=== PATIENT | female | born 1985 | race Two or more races ===

== ENCOUNTER 2017-01-20 16:31 | Emergency (ER) | payer MEDICARE ==
[2017-01-20 18:53] LABS: Hematocrit 39 % (35-47); Mean Corpuscular HGB Conc 33 g/dl (31-36); Mean Corpuscular Hemoglobin 28 pg (27-31); Mean Corpuscular Volume 83 fL (80-97); Mean Platelet Volume 8 um3 (7.4-10.4); Red Blood Count 4.72 10^6/ul (4.0-5.4); Red Cell Distribution Width 14 % (10.5-15); White Blood Count 10.5 10^3/ul (3.5-10.8)
[2017-01-20 19:05] LABS: Albumin 4.3 g/dL (3.2-5.2); BUN/Creatinine Ratio 9.1 (8-20); Calcium 9.2 mg/dL (8.6-10.3); EGFR African American 133.5 (>60); EGFR Non-African American 103.8 (>60); Globulin 3.6 g/dL (2-4); Magnesium 2.3 mg/dL (1.9-2.7); Potassium 3.6 mmol/L (3.5-5.0); Total Bilirubin 0.3 mg/dL (0.2-1.0); Total Protein 7.9 g/dL (6.4-8.9)
--- NOTE | 2017-01-20 19:08 | RAD ---
Indication: Palpitations. Single frontal view of the chest performed at 1845 hours was reviewed. Comparison is made with previous exam dated July 10, 2013. No mediastinal shift is noted. Heart is of normal size and configuration. Lung wahl appear clear. IMPRESSION: NO ACTIVE CARDIOPULMONARY DISEASE IS NOTED.
[2017-01-20 19:19] LABS: TSH (Thyroid Stimulating Horm) 2.41 mcIU/mL (0.34-5.60)
[2017-01-20] MEDS ORDERED: NS 0.9% 1000 ML* 1,000 ML IV ONE (20:04)
--- NOTE | 2017-01-20 23:03 | ED ---
Margarito Downs Salem, scribed for Olvin Ramsey MD on 01/20/17 at 1908 . HPI Chest Pain - HPI Summary HPI Summary: Patient is a 31 y/o female who presents with increased stabbing, left-sided CP since 2 days ago, worse today. She reports chest tightness, dizziness, and SOB. She states that she has been experiencing palpitations and lightheadedness with mild exertion for the last 2 days. Pt also reports a sinus infection a few weeks ago. PMHx of SVT. - History of Current Complaint Chief Complaint: EDDysrhythmPalp Time Seen by Provider: 01/20/17 18:00 Hx Obtained From: Patient Onset/Duration: Started Days Ago, Still Present Timing: Constant Initial Severity: Moderate Current Severity: Moderate Pain Intensity: 10 Pain Scale Used: 0-10 Numeric Chest Pain Location: Mid Sternal, Left Anterior Character: Sharp/Stabbing Aggravating Factor(s): Exertion Alleviating Factor(s): Rest Associated Signs and Symptoms: Positive: Chest Pain - and tightness., Dizziness , Shortness of Breath, Lightheadedness, Other: - Palpitations. - Additional Pertinent History Primary Care Physician: [id number] - Allergy/Home Medications Allergies/Adverse Reactions: Allergies Allergy/AdvReac Type Severity Reaction Status Date / Time Clarithromycin [From Biaxin] Allergy Severe Anaphylatic Verified 01/20/17 16:51 Shock Clindamycin Allergy Severe Anaphylatic Verified 01/20/17 16:51 Shock Pregabalin [From Lyrica] Allergy Severe tremors, Verified 01/20/17 16:51 low blood sugar Sulfamethoxazole Allergy Severe Airway Verified 01/20/17 16:51 w/Trimethoprim Obstruction [From Bactrim] Ciprofloxacin [From Cipro] Allergy Intermediate Swelling Verified 01/20/17 16:51 Of Face,Lips,& Throat Dexamethasone Allergy Intermediate Hives Verified 01/20/17 16:51 Gabapentin [From Neurontin] Allergy Intermediate Hives Verified 01/20/17 16:51 Mupirocin [From Bactroban] Allergy Intermediate Hives Verified 01/20/17 16:51 Rofecoxib [From Vioxx] Allergy Intermediate Hives Verified 01/20/17 16:51 Minocycline Allergy Mild Hives Verified 01/20/17 16:51 Oxaprozin [From Daypro] Allergy Mild Rash Verified 01/20/17 16:51 Methylprednisolone AdvReac Intermediate migraine Verified 01/20/17 16:51 Oxycodone AdvReac Intermediate Altered Verified 01/20/17 16:51 Mental Status Vancomycin AdvReac Intermediate See Comment Verified 01/20/17 16:51 Hydrocodone [From Vicodin] AdvReac Mild Nausea Verified 01/20/17 16:51 Levofloxacin [From Levaquin] AdvReac Mild Leg Cramps Verified 01/20/17 16:51 Tapentadol [From Nucynta] AdvReac Mild Shakes Verified 01/20/17 16:51 Tizanidine [From Zanaflex] AdvReac Mild See Comment Verified 01/20/17 16:51 Tramadol [From Ultram] AdvReac Mild Nausea Verified 01/20/17 16:51 WHEAT Allergy Severe Anaphylatic Uncoded 01/20/17 16:51 Shock ADHESIVE Allergy NICE Uncoded 01/20/17 16:51 SKIN, ITCHY IRRITATED ENVIRONMENTAL Allergy Congestion Uncoded 01/20/17 16:51 LATEX Allergy Rash And Uncoded 01/20/17 16:51 Itching Home Medications: Home Medications Albuterol 2.5MG/3ML (0.083%)* [Ventolin 2.5 MG/3 ML NEB.[id number]*] 2.5 mg INH QID PRN 01/20/17 [History Confirmed 01/20/17] Benzoyl Peroxide [Benzoyl Peroxide Wash] 5 % TOPICAL QPM 01/20/17 [History Confirmed 01/20/17] DULoxetine DR CAP* [Cymbalta CAP*] 30 mg PO BID 01/20/17 [History Confirmed 09/26] tretinoin 0.03% (NF) [Retin-A 0.03% (NF)] 1 applic TOPICAL DAILY PRN 01/20/17 [ History Confirmed 01/20/17] PMH/Surg Hx/FS Hx/Imm Hx Endocrine/Hematology History: Reports: Hx Diabetes - TYPE 2 Cardiovascular History: Reports: Hx Angina Denies: Hx Hypertension, Hx Pacemaker/ICD Comment Only: Other Cardiovascular Problems/Disorders - SVT Respiratory History: Reports: Hx Asthma Denies: Hx Sleep Apnea GI History: Denies: Other GI Disorders History: Reports: Other Problems/Disorders - HX- KIDNEY STONES-2006 Denies: Hx Renal Disease Musculoskeletal History: Reports: Hx Arthritis, Hx Back Problems, Hx Tendonitis , Other Musculoskeletal History - LAMINECTOMY x 2, SPINAL FUSION DISCECTOMY Sensory History: Reports: Hx Contacts or Glasses - CONTACTS, WILL WEAR GLASSES DAY OF SURGERY Denies: Hx Hearing Aid Opthamlomology History: Reports: Hx Contacts or Glasses - CONTACTS, WILL WEAR GLASSES DAY OF SURGERY Neurological History: Reports: Hx Headaches, Hx Migraine - ALLERGY TRIGGERED, Hx Nerve Disease, Other Neuro Impairments/Disorders - RADICULOPATHY, NEUROPATHY Psychiatric History: Denies: Hx Depression, Hx Panic Disorder - Surgical History Surgery Procedure, Year, and Place: [id number] 6 TOTAL BACK SURGERIES INCLUDING LUMBAR SPINAL FUSIONS AND LAMINECTOMIES, [facility]. 07/2016 DILATION [place] [facility] [place]. [place]/2016 RIGHT WRIST TUMOR REMOVED/RIGHT MIDDLE FINGER REMOVAL [place] TISSUE, [facility] [place] SPINAL STIMULATOR IMPLANT, [place]. [id number] 3 SETS OF EAR TUBES A CHILD, [facility]. 1992 T & A, [facility] Hx Anesthesia Reactions: No Infectious Disease History: Yes Infectious Disease History: Reports: Hx of Known/Suspected MRSA, History Other Infectious Disease - MRSA Denies: Traveled Outside the US in Last 30 Days - Social History Alcohol Use: None Substance Use Type: Reports: None Smoking Status (MU): Never Smoked Tobacco Have You Smoked in the Last Year: No Review of Systems Negative: Fever Positive: Chest Pain - and tightness. , Other - Palpitations. Positive: Shortness Of Breath Neurological: Other - Dizziness. Lightheadedness. All Other Systems Reviewed And Are Negative: Yes Physical Exam Triage Information Reviewed: Yes Vital Signs On Initial Exam: Initial Vitals Temp Pulse Resp BP Pulse Ox 97.3 F 84 20 113/63 100 01/20/17 16:51 01/20/17 16:51 01/20/17 16:51 01/20/17 16:51 01/20/17 16:51 Vital Signs Reviewed: Yes Appearance: Positive: Well-Appearing, No Pain Distress, Obese Skin: Positive: Warm, Skin Color Reflects Adequate Perfusion, Dry Head/Face: Positive: Normal Head/Face Inspection Eyes: Positive: Normal Neck: Positive: Supple, Nontender Respiratory/Lung Sounds: Positive: Clear to Auscultation, Breath Sounds Present Cardiovascular: Positive: Tachycardia - when sitting up. Abdomen Description: Positive: Nontender, Soft Bowel Sounds: Positive: Present Musculoskeletal: Positive: Normal Neurological: Positive: Normal Psychiatric: Positive: Normal, Affect/Mood Appropriate - Fili Coma Scale Coma Scale Total: 13 Diagnostics - Vital Signs Vital Signs Temp Pulse Resp BP Pulse Ox 01/20/17 17:17 20 01/20/17 17:11 71 01/20/17 16:51 97.3 F 84 20 113/63 100 - Laboratory Lab Results: Lab Results 01/20/17 01/20/17 Range/Units 17:25 17:25 WBC 10.5 (3.5-10.8) 10^3/ul RBC 4.72 (4.0-5.4) 10^6/ul Hgb 13.0 (12.0-16.0) g/dl Hct 39 (35-47) % MCV 83 (80-97) fL MCH 28 (27-31) pg MCHC 33 (31-36) g/dl RDW 14 (10.5-15) % Plt Count 296 (150-450) 10^3/ul MPV 8 (7.4-10.4) um3 Neut % (Auto) 49.8 (38-83) % Lymph % (Auto) 40.7 (25-47) % [place] % (Auto) 7.0 (1-9) % Eos % (Auto) 1.5 (0-6) % Baso % (Auto) 1.0 (0-2) % Absolute Neuts (auto) 5.2 (1.5-7.7) 10^3/ul Absolute Lymphs (auto) 4.3 (1.0-4.8) 10^3/ul Absolute Monos (auto) 0.7 (0-0.8) 10^3/ul Absolute Eos (auto) 0.2 (0-0.6) 10^3/ul Absolute Basos (auto) 0.1 (0-0.2) 10^3/ul Absolute Nucleated RBC 0.01 10^3/ul Nucleated RBC % 0.1 INR (Anticoag Therapy) 1.00 (0.89-1.11) Result Diagrams: 01/20/17 17:25 01/20/17 17:25 Lab Statement: Any lab studies that have been ordered have been reviewed, and results considered in the medical decision making process. - Radiology CXR Radiology Interpretation Completed By: Radiologist - IMPRESSION: NO ACTIVE CARDIOPULMONARY DISEASE IS NOTED. - EKG 1642 EKG Interpretation: NSR @ 81 bpm. Re-Evaluation - Re-Evaluation First Eval Re-Evaluation Time: 21:14 Second Eval Re-Evaluation Time: 22:46 Chest Pain Course/Dx - Course Course Of Treatment: Ms. Peters continued to C/O her symptoms here although she had no dysrythmias here and her W/U was normal. I am awaiting a repeat troponin and anticipate that it will be negative and she will go home. - Diagnoses Provider Diagnoses: Palpitations Discharge - Discharge Plan Condition: Stable Disposition: HOME Patient Education Materials: Palpitations (ED) Referrals: Angela Carballo MD [Medical Doctor] - Additional Instructions: Follow up with Dr. 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 The documentation as recorded by the Margarito madrigal Salem accurately reflects the service I personally performed and the decisions made by me, Olvin Ramsey MD.
[2017-01-21 00:38] VITALS: BP 108/71
== END 2017-01-21 00:37 | disposition home or self-care (01) ==
LOC: ED 16:31
DX: R00.2 Palpitations (principal); R07.9 Chest pain, unspecified; R42 Dizziness and giddiness; R06.02 Shortness of breath
CPT/HCPCS: 36415; 71010; 80053; 83605; 83735; 83880; 84443; 84484; 85025; 85379; 85610; 93005; 99282

== ENCOUNTER → 2017-05-23 12:13 | Emergency (ER) | payer MEDICARE, MEDICAID ==
[~2017-05-23 12:13] MED LIST: Acetaminophen TAB* 325 MG PO ONE; Metoclopramide IV* 5 MG/ML 2 ML VIAL IV ONE; NS 0.9% 1000 ML* 1,000 ML IV ONE
[2017-05-23 13:25] LABS: Hematocrit 37 % (35-47); Hemoglobin 12.1 g/dl (12.0-16.0); Mean Corpuscular HGB Conc 33 g/dl (31-36); Mean Corpuscular Hemoglobin 28 pg (27-31); Mean Corpuscular Volume 83 fL (80-97); Mean Platelet Volume 8 um3 (7.4-10.4); Red Blood Count 4.37 10^6/ul (4.0-5.4); Red Cell Distribution Width 14 % (10.5-15); White Blood Count 7.6 10^3/ul (3.5-10.8)
--- NOTE | 2017-05-23 13:38 | RAD ---
Indication: Left flank pain radiating to left upper quadrant. CT of the abdomen and pelvis was performed without oral or IV contrast administration. Coronal and sagittal reconstructed images were obtained. The lung bases demonstrate no pleural fluid, nodules or masses. Heart is of normal size without evidence of pericardial effusion. The liver is normal in size. No focal lesions or intrahepatic ductal dilatation is noted. The gallbladder demonstrates no calcified gallstones. No pericholecystic fluid or wall thickening is identified. The pancreas demonstrates no mass or pancreatic ductal dilatation. The common duct is not dilated. The spleen is normal in size. No adrenal lesions are noted. The kidneys demonstrate no hydronephrosis. No retroperitoneal lymphadenopathy is noted. No dilated loops of bowel are noted. CT of the pelvis demonstrates normal appendix. No dilated loops of bowel are noted. Follicles are noted in both ovaries. Uterus is otherwise unremarkable. There is a neurostimulator device in place. Postoperative changes are noted in the lower lumbar spine. IMPRESSION: No evidence of obstructive uropathy is noted. Neural stimulator leads are in place. Postoperative changes of the lumbar spine are noted.
[2017-05-23 13:42] LABS: ALT 23 U/L (7-52); AST 23 U/L (13-39); Albumin 3.9 g/dL (3.2-5.2); Alkaline Phosphatase 62 U/L (34-104); Anion Gap 8 mmol/L (2-11); Blood Urea Nitrogen 6 mg/dL (6-24); CO2 Carbon Dioxide 25 mmol/L (22-32); Calcium 8.8 mg/dL (8.6-10.3); Chloride 105 mmol/L (101-111); EGFR Non-African American 115.9 (>60); Globulin 3.3 g/dL (2-4); Glucose 107 mg/dL (70-100); Lipase 13 U/L (11.0-82.0); Potassium 3.9 mmol/L (3.5-5.0); Sodium 138 mmol/L (133-145); Total Protein 7.2 g/dL (6.4-8.9)
[2017-05-23 14:44] LABS: Urine Bilirubin Negative (Negative); Urine Glucose Negative (Negative); Urine Nitrite Negative (Negative)
[2017-05-23 15:39] VITALS: BP 110/65
--- NOTE | 2017-05-23 18:14 | ED ---
Wanda Downs Thomas, scribed for Ray Lyon MD on 05/23/17 at 1304 . Abdominal Pain/Female - HPI Summary HPI Summary: The pt is a 31 y/o F presenting to the ED c/o LUQ abd pain that began two weeks ago but significantly worsened this morning. The pain radiates to her back. The pain is constant and is rated 10/10. The pain is aggravated and alleviated by nothing. The patient has not treated the pain with anything SEALER DRY CELL. Pt additionally c/o nausea. Pt denies vomiting, diarrhea, and constipation. PMHx: asthma, PCOS. DM, MRSA, common variable immune deficiency, tachycardia, and PSVT. PSHx: two laminectomies, T&A, ear tubes, discectomy, lumbar fusion, and neurostimulator implant. SHx: no smoking, no alcohol use, no illicit drugs. She is scheduled for an ultrasound in two days but reports that the pain is so severe she was unable to wait. - History of Current Complaint Chief Complaint: EDAbdPain Stated Complaint: LT SIDED PAIN, NAUSEA Time Seen by Provider: 05/23/17 12:56 Hx Obtained From: Patient Hx Last Menstrual Period: 3 months ago Onset/Duration: Lasting Weeks - onset 2 weeks ago, Still Present, Worse Since - today Timing: Constant Severity Currently: Severe Pain Intensity: 10 Pain Scale Used: 0-10 Numeric Location: Discrete At: RUQ, Other Radiates: Yes Radiates to: Back Aggravating Factor(s): Nothing Alleviating Factor(s): Nothing Associated Signs and Symptoms: Positive: Nausea. Negative: Vomiting, Diarrhea, Other: - NEG: constipation Allergies/Adverse Reactions: Allergies Allergy/AdvReac Type Severity Reaction Status Date / Time Clarithromycin [From Biaxin] Allergy Severe Anaphylatic Verified 01/20/17 16:51 Shock Clindamycin Allergy Severe Anaphylatic Verified 01/20/17 16:51 Shock Pregabalin [From Lyrica] Allergy Severe tremors, Verified 01/20/17 16:51 low blood sugar Sulfamethoxazole Allergy Severe Airway Verified 01/20/17 16:51 w/Trimethoprim Obstruction [From Bactrim] Ciprofloxacin [From Cipro] Allergy Intermediate Swelling Verified 01/20/17 16:51 Of Face,Lips,& Throat Dexamethasone Allergy Intermediate Hives Verified 01/20/17 16:51 Gabapentin [From Neurontin] Allergy Intermediate Hives Verified 04/12/17 16:51 Mupirocin [From Bactroban] Allergy Intermediate Hives Verified 01/20/17 16:51 Rofecoxib [From Vioxx] Allergy Intermediate Hives Verified 01/20/17 16:51 Minocycline Allergy Mild Hives Verified 01/20/17 16:51 Oxaprozin [From Daypro] Allergy Mild Rash Verified 01/20/17 16:51 Methylprednisolone AdvReac Intermediate migraine Verified 01/20/17 16:51 Oxycodone AdvReac Intermediate Altered Verified 01/20/17 16:51 Mental Status Vancomycin AdvReac Intermediate See Comment Verified 01/20/17 16:51 Hydrocodone [From Vicodin] AdvReac Mild Nausea Verified 01/20/17 16:51 Levofloxacin [From Levaquin] AdvReac Mild Leg Cramps Verified 01/20/17 16:51 Tapentadol [From Nucynta] AdvReac Mild Shakes Verified 01/20/17 16:51 Tizanidine [From Zanaflex] AdvReac Mild See Comment Verified 01/20/17 16:51 Tramadol [From Ultram] AdvReac Mild Nausea Verified 01/20/17 16:51 WHEAT Allergy Severe Anaphylatic Uncoded 01/20/17 16:51 Shock ADHESIVE Allergy NICE Uncoded 01/20/17 16:51 SKIN, ITCHY IRRITATED ENVIRONMENTAL Allergy Congestion Uncoded 01/20/17 16:51 LATEX Allergy Rash And Uncoded 01/20/17 16:51 Itching PMH/Surg Hx/FS Hx/Imm Hx Previously Healthy: No - Common variable immune deficiency. Endocrine/Hematology History: Reports: Hx Diabetes - TYPE 2 Cardiovascular History: Reports: Hx Angina Denies: Hx Hypertension, Hx Pacemaker/ICD Comment Only: Other Cardiovascular Problems/Disorders - SVT Respiratory History: Reports: Hx Asthma Denies: Hx Sleep Apnea GI History: Denies: Other GI Disorders History: Reports: Other Problems/Disorders - HX- KIDNEY STONES-2006 Denies: Hx Renal Disease Musculoskeletal History: Reports: Hx Arthritis, Hx Back Problems, Hx Tendonitis , Other Musculoskeletal History - LAMINECTOMY x 2, SPINAL FUSION DISCECTOMY Sensory History: Reports: Hx Contacts or Glasses - CONTACTS, WILL WEAR GLASSES DAY OF SURGERY Denies: Hx Hearing Aid Opthamlomology History: Reports: Hx Contacts or Glasses - CONTACTS, WILL WEAR GLASSES DAY OF SURGERY Neurological History: Reports: Hx Headaches, Hx Migraine - ALLERGY TRIGGERED, Hx Nerve Disease, Other Neuro Impairments/Disorders - RADICULOPATHY, NEUROPATHY Psychiatric History: Denies: Hx Depression, Hx Panic Disorder - Surgical History Surgery Procedure, Year, and Place: [id number] 6 TOTAL BACK SURGERIES INCLUDING LUMBAR SPINAL FUSIONS AND [facility]INE[facility]OMIES, [facility] 07/2016 DILATION AND CURETTAGE, [facility] [place]. 04/2016 RIGHT WRIST TUMOR REMOVED/RIGHT MIDDLE FINGER REMOVAL OF TISSUE, [facility] [place] SPINAL STIMULATOR IMPLANT, [place]. [id number] 3 SETS OF EAR TUBES A CHILD, [facility]. 1992 T & A, [facility] Hx Anesthesia Reactions: No Infectious Disease History: Yes Infectious Disease History: Reports: Hx of Known/Suspected MRSA, History Other Infectious Disease - MRSA Denies: Traveled Outside the US in Last 30 Days - Family History Known Family History: Positive: Cardiac Disease, Hypertension, Diabetes, Other - POS: [place] - Social History Alcohol Use: None Substance Use Type: Reports: None Smoking Status (MU): Never Smoked Tobacco Have You Smoked in the Last Year: No Review of Systems Constitutional: Negative Negative: Fever Positive: Abdominal Pain - LUQ, 07/20, radiates to back, onset 2 weeks ago but worsened this AM significantly, Nausea. Negative: Vomiting, Diarrhea, Other - NEG: constipation All Other Systems Reviewed And Are Negative: Yes Physical Exam - Summary Physical Exam Summary: VITAL SIGNS: Reviewed. GENERAL: Patient is an obese female who is lying comfortable in the stretcher. ~ Patient is not in any acute respiratory distress. HEAD AND FACE: Normocephalic and atraumatic. EYES: PERRLA, EOMI x 2, No injected conjunctiva. EARS: Hearing grossly intact. Ear canals and tympanic membranes are WNL. MOUTH: Oropharynx within normal limits. NECK: Supple, trachea is midline, no adenopathy, no JVD. CHEST: Symmetric, no tenderness at palpation LUNGS: Clear to auscultation bilaterally. No wheezing or crackles. CVS: RRR, S1 and S2 present, no murmurs or gallops appreciated. ABDOMEN: There is LUQ tenderness as well as positive left CVA tenderness. Soft, no signs of distention. Positive bowel sounds. No rebound no guarding, and no masses palpated. No abdominal bruit or pulsations. EXTREMITIES: FROM in all major joints, no edema, no cyanosis or clubbing. NEURO: Alert and oriented x 3. No acute neurological deficits. Speech is normal. SKIN: Dry and warm Triage Information Reviewed: Yes Vital Signs On Initial Exam: Initial Vitals Temp Pulse Resp BP Pulse Ox 97.8 F 90 20 119/66 97 05/23/17 12:21 05/23/17 12:21 05/23/17 12:21 05/23/17 12:21 05/23/17 12:21 Vital Signs Reviewed: Yes - Fili Coma Scale Coma Scale Total: 15 Diagnostics - Vital Signs Vital Signs Temp Pulse Resp BP Pulse Ox 05/23/17 12:45 98.5 F 78 20 105/63 95 05/23/17 12:21 97.8 F 90 20 119/66 97 - Laboratory Lab Results: Lab Results 05/23/17 05/23/17 05/23/17 Range/Units 13:13 13:13 13:13 WBC 7.6 (3.5-10.8) 10^3/ul RBC 4.37 (4.0-5.4) 10^6/ul Hgb 12.1 (12.0-16.0) g/dl Hct 37 (35-47) % MCV 83 (80-97) fL MCH 28 (27-31) pg MCHC 33 (31-36) g/dl RDW 14 (10.5-15) % Plt Count 254 (150-450) 10^3/ul MPV 8 (7.4-10.4) um3 Neut % (Auto) 49.6 (38-83) % Lymph % (Auto) 40.2 (25-47) % [place] % (Auto) 7.5 (1-9) % Eos % (Auto) 1.7 (0-6) % Baso % (Auto) 1.0 (0-2) % Absolute Neuts (auto) 3.7 (1.5-7.7) 10^3/ul Absolute Lymphs (auto) 3.0 (1.0-4.8) 10^3/ul Absolute Monos (auto) 0.6 (0-0.8) 10^3/ul Absolute Eos (auto) 0.1 (0-0.6) 10^3/ul Absolute Basos (auto) 0.1 (0-0.2) 10^3/ul Absolute Nucleated RBC 0.01 10^3/ul Nucleated RBC % 0.2 Sodium 138 (133-145) mmol/L Potassium 3.9 (3.5-5.0) mmol/L Chloride 105 (101-111) mmol/L Carbon Dioxide 25 (22-32) mmol/L Anion Gap 8 (2-11) mmol/L BUN 6 (6-24) mg/dL Creatinine 0.60 (0.51-0.95) mg/dL Est GFR ( Amer) 149.0 (>60) Est GFR (Non-Af Amer) 115.9 (>60) BUN/Creatinine Ratio 10.0 (8-20) Glucose 107 H (70-100) mg/dL Lactic Acid 2.0 (0.5-2.0) mmol/L Calcium 8.8 (8.6-10.3) mg/dL Total Bilirubin 0.30 (0.2-1.0) mg/dL AST 23 (13-39) U/L ALT 23 (7-52) U/L Alkaline Phosphatase 62 (34-104) U/L C-Reactive Protein 22.40 H (< 5.00) mg/L Total Protein 7.2 (6.4-8.9) g/dL Albumin 3.9 (3.2-5.2) g/dL Globulin 3.3 (2-4) g/dL Albumin/Globulin Ratio 1.2 (1-3) Lipase 13 (11.0-82.0) U/L Beta HCG, Quant < 0.60 mIU/mL Urine Color Urine Appearance Urine pH (5-9) Ur Specific [place] (1.010-1.030) Urine Protein (Negative) Urine Ketones (Negative) Urine Blood (Negative) Urine Nitrate (Negative) Urine Bilirubin (Negative) Urine Urobilinogen (Negative) Ur Leukocyte Esterase (Negative) Urine Glucose (Negative) 05/23/17 Range/Units 14:05 WBC (3.5-10.8) 10^3/ul RBC (4.0-5.4) 10^6/ul Hgb (12.0-16.0) g/dl Hct (35-47) % MCV (80-97) fL MCH (27-31) pg MCHC (31-36) g/dl RDW (10.5-15) % Plt Count (150-450) 10^3/ul MPV (7.4-10.4) um3 Neut % (Auto) (38-83) % Lymph % (Auto) (25-47) % [place] % (Auto) (1-9) % Eos % (Auto) (0-6) % Baso % (Auto) (0-2) % Absolute Neuts (auto) (1.5-7.7) 10^3/ul Absolute Lymphs (auto) (1.0-4.8) 10^3/ul Absolute Monos (auto) (0-0.8) 10^3/ul Absolute Eos (auto) (0-0.6) 10^3/ul Absolute Basos (auto) (0-0.2) 10^3/ul Absolute Nucleated RBC 10^3/ul Nucleated RBC % Sodium (133-145) mmol/L Potassium (3.5-5.0) mmol/L Chloride (101-111) mmol/L Carbon Dioxide (22-32) mmol/L Anion Gap (2-11) mmol/L BUN (6-24) mg/dL Creatinine (0.51-0.95) mg/dL Est GFR ( Amer) (>60) Est GFR (Non-Af Amer) (>60) BUN/Creatinine Ratio (8-20) Glucose (70-100) mg/dL Lactic Acid (0.5-2.0) mmol/L Calcium (8.6-10.3) mg/dL Total Bilirubin (0.2-1.0) mg/dL AST (13-39) U/L ALT (7-52) U/L Alkaline Phosphatase (34-104) U/L C-Reactive Protein (< 5.00) mg/L Total Protein (6.4-8.9) g/dL Albumin (3.2-5.2) g/dL Globulin (2-4) g/dL Albumin/Globulin Ratio (1-3) Lipase (11.0-82.0) U/L Beta HCG, Quant mIU/mL Urine Color Straw Urine Appearance Cloudy Urine pH 8.0 (5-9) Ur Specific [place] 1.006 L (1.010-1.030) Urine Protein Negative (Negative) Urine Ketones Negative (Negative) Urine Blood Negative (Negative) Urine Nitrate Negative (Negative) Urine Bilirubin Negative (Negative) Urine Urobilinogen Negative (Negative) Ur Leukocyte Esterase Negative (Negative) Urine Glucose Negative (Negative) Result Diagrams: 05/23/17 13:13 05/23/17 13:13 Lab Statement: Any lab studies that have been ordered have been reviewed, and results considered in the medical decision making process. - CT CT Abd/Pel CT Interpretation: No Acute Changes - No evidence of obstructive uropathy is noted. Neural stimulator leads are in place. Postoperative changes of the lumbar spine are noted. CT Interpretation Completed By: Radiologist Re-Evaluation - Re-Evaluation First Eval Re-Evaluation Time: 13:56 Change: Improved Comment: She is feeling better. Abdominal Pain Fem Course/Dx - Course Course Of Treatment: The pt is a 31 y/o F presenting to the ED c/o LUQ abd pain that began two weeks ago but significantly worsened this morning. The pain radiates to her back. The pain is constant and is rated 10/10. The pain is aggravated and alleviated by nothing. The patient has not treated the pain with anything SEALER DRY CELL. Pt additionally c/o nausea. Pt denies vomiting, diarrhea, and constipation. PMHx: asthma, PCOS. DM, MRSA, common variable immune deficiency, tachycardia, and PSVT. PSHx: two laminectomies, T&A, ear tubes, discectomy, lumbar fusion, and neurostimulator implant. SHx: no smoking, no alcohol use, no illicit drugs. She is scheduled for an ultrasound in two days but reports that the pain is so severe she was unable to wait for that ultrasound, prompting an ED visit. Test results are without significant abnormality abnormalities. UA is negative for a UTI. CT Abd/Pel reveals No evidence of obstructive uropathy is noted. Neural stimulator leads are in place. Postoperative changes of the lumbar spine are noted. The patient was given Tylenol for the pain and her symptoms improved. I also gave her Reglan, IV fluids, and all of her symptoms resolved. Since blood tests and the CT were within normal limits, she will be discharged home with follow up from her PCP. She is hemodynamically stable and alert and oriented x3. I discussed all the findings and test results with the patient. Patient was instructed to return to the emergency room immediately if any of the symptoms return or worsens. They were explained the possibility of an early abdominal pathology which was not detected at this time despite the physical exam and testing. They understand and agree. Abdominal exam before discharge: Soft, NT. No signs of distention. BS present. No rebound no guarding , and no masses palpated. Patient is alert and oriented and hemodynamically stable. Patient is to follow up with primary care physician in the next 2 to 3 days. Patient agree and understands. - Diagnoses Provider Diagnoses: Abdominal pain Discharge - Discharge Plan Condition: Stable Disposition: HOME Patient Education Materials: Abdominal Pain (ED) Referrals: Margarita Esquivel NP [Primary Care Provider] - 3 Days The documentation as recorded by the Wanda madrigal Thomas accurately reflects the service I personally performed and the decisions made by me, Ray Lyon MD.
== END | disposition home or self-care (01) ==
LOC: ED 12:13
DX: R10.12 Left upper quadrant pain (principal)
CPT/HCPCS: 36415; 74176; 80053; 81003; 83605; 83690; 84702; 85025; 86140; 96365; 99283; A9270-GY; J2765

== ENCOUNTER 2017-08-19 14:41 | Emergency (ER) | payer MEDICARE ==
[2017-08-19 14:50] VITALS: BP 113/58
[2017-08-19] MEDS ORDERED: Amoxicillin/Clavulanate TAB* 875 MG PO ONE (15:21)
--- NOTE | 2017-08-19 15:28 | UC ---
Bite Injury/Animal HPI - HPI Summary HPI Summary: 31 YO FEMALE S/P CAT BITE TO RIGHT THUMB 4 DAYS AGO SHE HAD A FEW LEFT OVER AUGMENTIN AND TOOK THEM PAIN AND SWELLING WORSENED YESTERDAY - History of Current Complaint Chief Complaint: UCUpperExtremity Stated Complaint: RED SWOLLEN THUMB Time Seen by Provider: 08/19/17 15:13 Hx Obtained From: Patient Hx Last Menstrual Period: 3 months ago Severity Currently: Moderate Severity Initially: Moderate Pain Intensity: 8 Pain Scale Used: 0-10 Numeric Onset/Duration: Sudden Onset Type of Bite: Pet - KITTEN Has Animal Been Immunized?: N/A Character: Puncture Animal Available for Observation: Yes Animal Control Notified: Yes - Risk Factors Infection/Sepsis Risk Factors: Immunocompromised Patient - Allergies/Home Medications Allergies/Adverse Reactions: Allergies Allergy/AdvReac Type Severity Reaction Status Date / Time Clarithromycin [From Biaxin] Allergy Severe Anaphylatic Verified 08/19/17 14:51 Shock Clindamycin Allergy Severe Anaphylatic Verified 08/19/17 14:51 Shock Pregabalin [From Lyrica] Allergy Severe tremors, Verified 08/19/17 14:51 low blood sugar Sulfamethoxazole Allergy Severe Airway Verified 08/19/17 14:51 w/Trimethoprim Obstruction [From Bactrim] Ciprofloxacin [From Cipro] Allergy Intermediate Swelling Verified 08/19/17 14:51 Of Face,Lips,& Throat Dexamethasone Allergy Intermediate Hives Verified 08/19/17 14:51 Gabapentin [From Neurontin] Allergy Intermediate Hives Verified 08/19/17 14:51 Mupirocin [From Bactroban] Allergy Intermediate Hives Verified 08/19/17 14:51 Rofecoxib [From Vioxx] Allergy Intermediate Hives Verified 08/19/17 14:51 Minocycline Allergy Mild Hives Verified 08/19/17 14:51 Oxaprozin [From Daypro] Allergy Mild Rash Verified 08/19/17 14:51 Methylprednisolone AdvReac Intermediate migraine Verified 08/19/17 14:51 Oxycodone AdvReac Intermediate Altered Verified 08/19/17 14:51 Mental Status Vancomycin AdvReac Intermediate See Comment Verified 08/19/17 14:51 Hydrocodone [From Vicodin] AdvReac Mild Nausea Verified 08/19/17 14:51 Levofloxacin [From Levaquin] AdvReac Mild Leg Cramps Verified 08/19/17 14:51 Tapentadol [From Nucynta] AdvReac Mild Shakes Verified 08/19/17 14:51 Tizanidine [From Zanaflex] AdvReac Mild See Comment Verified 08/19/17 14:51 Tramadol [From Ultram] AdvReac Mild Nausea Verified 08/19/17 14:51 WHEAT Allergy Severe Anaphylatic Uncoded 08/19/17 14:51 Shock ADHESIVE Allergy NICE Uncoded 08/19/17 14:51 SKIN, ITCHY IRRITATED ENVIRONMENTAL Allergy Congestion Uncoded 08/19/17 14:51 LATEX Allergy Rash And Uncoded 08/19/17 14:51 Itching Home Medications: Home Medications Methotrexate TAB* 7.5 mg PO WEEKLY 08/19/17 [History Confirmed 08/19/17] PMH/Surg Hx/FS Hx/Imm Hx Previously Healthy: No - IMMUNE DEFICIENCY - Surgical History Surgical History: Yes Surgery Procedure, Year, and Place: [id number] 6 TOTAL BACK SURGERIES INCLUDING LUMBAR SPINAL FUSIONS AND LAMINECTOMIES, [facility]. 07/2016 [place]ILATION [place] [facility] [place]. [place]2016 RIGHT WRIST TUMOR REMOVED/RIGHT MIDDLE FINGER REMOVAL OF TISSUE, [facility] [place]. SPINAL STIMULATOR IMPLANT, [facility]. [id number] 3 SETS OF EAR TUBES A CHILD, [facility]. 1992 T & A, [facility] - Family History Known Family History: Positive: Cardiac Disease, Hypertension, Diabetes, Other - POS: [place] - Social History Alcohol Use: None Substance Use Type: None Smoking Status (MU): Never Smoked Tobacco Have You Smoked in the Last Year: No - Immunization History Most Recent Influenza Vaccination: 2011 Most Recent Tetanus Shot: unknown Most Recent Pneumonia Vaccination: less than a year Review of Systems Constitutional: Negative Skin: Negative Eyes: Negative ENT: Negative Respiratory: Negative Cardiovascular: Negative Gastrointestinal: Negative Genitourinary: Negative Motor: Negative Neurovascular: Negative Musculoskeletal: Negative Neurological: Negative Psychological: Negative Is Patient Immunocompromised?: Yes All Other Systems Reviewed And Are Negative: Yes Physical Exam Triage Information Reviewed: Yes Appearance: Well-Appearing, No Pain Distress, Well-Nourished Vital Signs: Initial Vital Signs Temp 97.5 F 08/19/17 14:43 Pulse 88 08/19/17 14:43 Resp 18 08/19/17 14:43 BP 113/58 08/19/17 14:43 Pulse Ox 99 08/19/17 14:43 Vital Signs Reviewed: Yes Eyes: Positive: Conjunctiva Clear ENT: Positive: Hearing grossly normal. Negative: Trismus, Muffled voice, Hoarse voice Neck: Positive: Supple, Nontender, No Lymphadenopathy Respiratory: Positive: Lungs clear, Normal breath sounds, No respiratory distress, No accessory muscle use Cardiovascular: Positive: RRR Musculoskeletal: Positive: ROM Intact, No Edema Neurological: Positive: Alert, Muscle Tone Normal Psychological Exam: Normal Skin Exam: Other - SEE IMAGE Bite Injury Course/Dx - Differential Dx/Diagnosis Provider Diagnoses: INFECTED CAT BITE RIGHT THUMB Discharge - Discharge Plan Condition: Stable Disposition: HOME Prescriptions: Amoxicillin/Clavulanate TAB* [Augmentin TAB 875*] 875 mg PO BID #14 tab Patient Education Materials: Animal Bite (ED), Cellulitis (ED) Referrals: Alessio Muir MD [Medical Doctor] - 1 Day Margarita Esquivel NP [Primary Care Provider] - Additional Instructions: THIS NEEDS TO BE RECHECKED TOMORROW IF NOT IMPROVING YOU COULD NEED SURGERY TO ER FOR NEW OR WORSENING SYMPTOMS I HAVE GIVEN YOU THE NAME AND NUMBER OF THE WRIST HEMMER MD FOR DR. LIU GROUP IF UNABLE TO GET IN THERE TRY YOUR MD IF UNABLE TO GET IN THERE RETURN HERE OR GO TO THE ER WARM SOAPY SOAKS EVERY 2 HOURS WHILE AWAKE ELEVATE Images Hands: 1 - RED/SWOLLEN, FROM, NO ASCENDING LYMPHANGITIS/NO SUB UNGUAL PUS
== END 2017-08-19 15:40 | disposition home or self-care (01) ==
LOC: UCEAST 14:41
DX: S61.051A Open bite of right thumb without damage to nail, initial encounter (principal); L08.89 Other specified local infections of the skin and subcutaneous tissue; Z88.1 Allergy status to other antibiotic agents; Z88.8 Allergy status to other drugs, medicaments and biological substances; Z88.2 Allergy status to sulfonamides; Z91.018 Allergy to other foods; Z91.09 Other allergy status, other than to drugs and biological substances; Z91.040 Latex allergy status; Z88.5 Allergy status to narcotic agent; W55.01XA Bitten by cat, initial encounter; Y92.9 Unspecified place or not applicable
CPT/HCPCS: 99212; A9270-GY; G0463

== ENCOUNTER 2017-09-10 10:17 | Day surgery (SDC) | payer MEDICARE ==
--- NOTE | 2017-09-07 00:48 | HP ---
PREOPERATIVE HISTORY AND PHYSICAL: DATE OF ADMISSION/SURGERY: 09/10/17 - [facility] DATE OF OFFICE/ENCOUNTER: 08/25/17 ATTENDING SURGEON: Adelita Jurado MD * (DICTATED BY BJ CHILEL) PROCEDURE: Left wrist mass excision. CHIEF COMPLAINT: Mass, left wrist. HISTORY OF PRESENT ILLNESS: This is a 31-year-old female, who was complaining of a mass on the dorsal aspect of her left wrist/forearm. She previously had mass removed from the same area back in November of 2016. She reports noticing a new painful lump distal to the previous surgical incision a month or so ago. She would like to have it removed. She denies any injury to this wrist or arm. Previous mass excised from the same area was identified as a lipoma. The patient has multiple other medical issues and will be receiving cardiac clearance from her glass cleaning machine tender, Dr. Carballo, prior to proceeding with surgery. We will also plan on placing the patient on clindamycin intraoperatively. PAST MEDICAL HISTORY: 1. History of MRSA. 2. Common variable agammaglobulinemia. 3. Paroxysmal SVT. 4. Adhesive middle ear disease. 5. Chronic back pain. 6. Chronic pain syndrome. 7. Polycystic ovaries. 8. Asthma. 9. Psoriasis. 10. Migraine headaches. 11. Rheumatoid arthritis. PAST SURGICAL HISTORY: 1. Right middle finger and right wrist mass excision. 2. Left wrist mass excision. 3. Tonsillectomy. 4. Myringotomy. 5. Back surgery x3. 6. Placement of neurostimulator in 2003. CURRENT MEDICATIONS: 1. Acetaminophen ER 650 mg q.6 hours p.r.n. 2. Albuterol sulfate 1 vial via nebulizer 4 times daily p.r.n. 3. Saige Allergy 180 mg daily p.r.n. 4. Benzoyl peroxide wash 5% apply to affected area before bedtime. 5. Cardizem 30 mg 1 tab 4 times a day. 6. Cyclobenzaprine HCl 10 mg 1 tab t.i.d. p.r.n. spasm. 7. Cymbalta 30 mg 3 capsules daily. 8. Hydroxychloroquine sulfate 200 mg 1 tab b.i.d. 9. Lidocaine HCl 2% apply to affected area 3 to 4 times daily as needed. 10. Magnesium 500 mg daily. 11. ProAir HFA 1 to 2 puffs q.4 to 6 hours p.r.n. shortness of breath. 12. Metformin HCl 500 mg 2 tablets by mouth 1 time daily. 13. Methotrexate 2.5 mg 3 capsules once weekly on Wednesday. 14. Metoprolol succinate ER 50 mg daily. 15. Multivitamin daily. 16. Provera 10 mg p.r.n. 17. Singulair 10 mg daily. 18. Tretinoin 0.01% apply to the affected areas p.r.n. 19. Triamcinolone acetonide 0.1% apply twice daily p.r.n. 20. Plaquenil 200 mg daily. ALLERGIES: DAYPRO, DOXYCYCLINE, MINOCYCLINE, NEURONTIN, IPRATROPIUM, CIPROFLOXACIN, OXYCODONE, BACTROBAN, VIOXX, BACTRIM, CLINDAMYCIN, LEVOFLOXACIN, LYRICA, NUCYNTA, PREDNISONE, VANCOMYCIN, VICODIN, and ZANAFLEX. FAMILY MEDICAL HISTORY: Seasonal allergies, diabetes, cancer, and heart disease. SOCIAL HISTORY: The patient lives alone. She is disabled. She denies tobacco use, recreational drug use, and does not drink alcohol. REVIEW OF SYSTEMS: General: Negative for fevers, chills, or night sweats. No known anesthesia problems in the past. HEENT: Positive for migraine headaches. Negative for lightheadedness or syncopal episodes. Integumentary: Negative for abrasions, lesions, or open wounds. Cardiothoracic: Positive for tachycardia and heart palpitations. Pulmonary: Positive for shortness of breath with exertion. Positive for asthma. GI: Negative for nausea, vomiting, diarrhea, constipation, or GERD. : Positive for history of kidney stones. Negative for nocturia, urinary frequency or urgency, history of UTIs. Musculoskeletal: Positive for current complaint, positive for chronic back pain. Neurological: Negative for paresthesias, numbness, history of seizure, stroke, or epilepsy. Endocrine: Negative for diabetes or thyroid issues. Hematologic: Negative for easy bruising, anemia, excessive bleeding, or history of DVT. Infectious Disease: Positive for history of MRSA. Negative for hepatitis C or HIV. PHYSICAL EXAMINATION GENERAL: Well-developed, well-nourished, 31-year-old female, in no acute distress. VITAL SIGNS: Height 5 feet 4 inches, weight 255 pounds, pulse rate 88, blood pressure 109/70. HEENT: Normocephalic, atraumatic. Pupils are equal, round, and reactive to light and accommodation. Extraocular movements are intact. Throat is clear. NECK: Supple. No palpable lymph nodes. PULMONARY: Lungs are clear to auscultation bilaterally. No wheezes, rales, or rhonchi. CARDIOVASCULAR: Regular rate and rhythm. S1, S2. No murmur, rubs, or gallops. No edema. ABDOMEN: Positive bowel sounds, soft, nontender. MUSCULOSKELETAL: On exam of her left wrist/forearm, there is a slightly tender , slightly raised area distal to the previous surgical incision. She can flex and extend her fingers well. She also has good motion in her wrist in both flexion and extension, but complains of some discomfort upon full extension. She can make a fist and her skin is intact. IMPRESSION: Lipoma, left forearm. PLAN: The patient is scheduled to undergo a left wrist mass excision with Dr. Jurado on 09/10/17. She will return to the office 10 days postop for followup and suture removal. A prescription for tramadol was e-scribed for the patient' s pharmacy for postoperative pain management. We will obtain clearance from her glass cleaning machine tender, Dr. Carballo, prior to proceeding with surgery. BJ CHILEL [id number]/[facility] #: [id number] TOMAS
[~2017-09-10 10:17] MED LIST changes: -Acetaminophen TAB* 325 MG PO ONE; +Buffered Lidocaine 0.9% SYRIN* 5 ML/SYR SYRINGE INTRADERM ONE; -Metoclopramide IV* 5 MG/ML 2 ML VIAL IV ONE; -NS 0.9% 1000 ML* 1,000 ML IV ONE
[2017-09-10] MEDS ORDERED: Lidocaine 1% INJ* 10 MG/ML 30 ML SDV ONE (11:16)
[2017-09-10] MEDS ORDERED: Midazolam* 1 MG/ML 2 ML VIAL (2 MG) ONE (11:22)
[2017-09-10] MEDS ORDERED: fentaNYL* 50 MCG/ML 2 ML VIAL (100 MCG VIAL) ONE (11:22)
[2017-09-10] MEDS ORDERED: Propofol* 10 MG/ML 20 ML BTL IV PUSH ONE (11:22)
[2017-09-10 12:33] VITALS: BP 109/51
--- NOTE | 2017-09-11 08:39 | OP ---
DATE OF OPERATION: 09/10/17 [facility] DATE OF : 83 SURGEON: Adelita Jurado MD. BI TECHNICAL LEAD: BJ Correia. ANESTHESIOLOGIST: Nawaf Mccall MD ANESTHESIA: Local MAC. PRE-OP DIAGNOSIS: Left forearm mass. POST-OP DIAGNOSIS: Left forearm mass. OPERATIVE PROCEDURE: Removal, left forearm mass. ESTIMATED BLOOD LOSS: Zero. TOURNIQUET TIME: About 20 minutes. INDICATION FOR PROCEDURE: Hillary is a 31-year-old female, who has had lipomas removed from her forearm in the past. She feels a painful lipoma just distal to the previous incision. She presents for removal of this forearm mass. DESCRIPTION OF PROCEDURE: The patient was brought to the operating room, was given a sedation anesthetic and a local infiltration of a total of 20 cc of 1% plain lidocaine on the dorsal aspect of her left forearm and wrist. The skin of her left hand and forearm was prepped and draped in the usual sterile fashion. The hand and forearm were exsanguinated and the tourniquet elevated to 250 mmHg. The previous incision was extended distally and we dissected subcutaneously. There was not a distinct lipoma, but the area where the patient felt a painful mass was carefully dissected out and lipomatous tissue was removed until there were no more firm areas. The wound was irrigated and the skin edges were reapproximated with 4-0 nylon suture. The wound was dressed with Xeroform, 4x4, Webril and an Sina wrap. The patient tolerated the procedure well and was brought to the recovery room in good condition. [id number]/[facility] #: [id number] [facility]
== END 2017-09-10 12:37 | disposition home or self-care (01) ==
LOC: OREAST 10:17
PROVIDERS: ATTEND Orthopaedic Surgery
DX: D17.22 Benign lipomatous neoplasm of skin and subcutaneous tissue of left arm (principal); G89.29 Other chronic pain; M54.9 Dorsalgia, unspecified; G89.4 Chronic pain syndrome; J45.909 Unspecified asthma, uncomplicated; M06.9 Rheumatoid arthritis, unspecified; Z79.899 Other long term (current) drug therapy; Z88.1 Allergy status to other antibiotic agents; Z88.5 Allergy status to narcotic agent; Z91.09 Other allergy status, other than to drugs and biological substances
CPT/HCPCS: 81025; 88304; J2250; J2704; J3010

== ENCOUNTER 2017-09-20 23:53 | Emergency (ER) | payer MEDICARE ==
[2017-09-21 00:01] VITALS: BP 118/64
--- NOTE | 2017-09-21 00:38 | ED ---
Laceration/Wound HPI - HPI Summary HPI Summary: 31F presents with reopening of left arm laceration today. She states she had a cyst removal last week by dr kemp. She states that suture were removed yesterday and today with movement an area spit open and started to bleed. She denies any fever or spreading redness. She denies any pus. She has full ROM of wrist. She is right handed. She is immunocompromised so is worried about infection. - History of Current Complaint Stated Complaint: ARM LAC Time Seen by Provider: 09/21/17 00:13 Hx Last Menstrual Period: 3 months ago Pain Intensity: 0 - Additional Pertinent History Primary Care Physician: [id number] - Allergy/Home Medications Allergies/Adverse Reactions: Allergies Allergy/AdvReac Type Severity Reaction Status Date / Time Clarithromycin [From Biaxin] Allergy Severe Anaphylatic Verified 09/21/17 00:02 Shock Clindamycin Allergy Severe Anaphylatic Verified 09/21/17 00:02 Shock Pregabalin [From Lyrica] Allergy Severe tremors, Verified 09/21/17 00:02 low blood sugar Sulfamethoxazole Allergy Severe Airway Verified 09/21/17 00:02 w/Trimethoprim Obstruction [From Bactrim] Ciprofloxacin [From Cipro] Allergy Intermediate Swelling Verified 09/21/17 00:02 Of Face,Lips,& Throat Dexamethasone Allergy Intermediate Hives Verified 09/21/17 00:02 Gabapentin [From Neurontin] Allergy Intermediate Hives Verified 09/21/17 00:02 Mupirocin [From Bactroban] Allergy Intermediate Hives Verified 09/21/17 00:02 Rofecoxib [From Vioxx] Allergy Intermediate Hives Verified 09/21/17 00:02 Minocycline Allergy Mild Hives Verified 09/21/17 00:02 Oxaprozin [From Daypro] Allergy Mild Rash Verified 09/21/17 00:02 Methylprednisolone AdvReac Intermediate migraine Verified 09/21/17 00:02 Oxycodone AdvReac Intermediate Altered Verified 09/21/17 00:02 Mental Status Vancomycin AdvReac Intermediate See Comment Verified 09/21/17 00:02 Hydrocodone [From Vicodin] AdvReac Mild Nausea Verified 09/21/17 00:02 Levofloxacin [From Levaquin] AdvReac Mild Leg Cramps Verified 09/21/17 00:02 Tapentadol [From Nucynta] AdvReac Mild Shakes Verified 09/21/17 00:02 Tizanidine [From Zanaflex] AdvReac Mild See Comment Verified 09/21/17 00:02 Tramadol [From Ultram] AdvReac Mild Nausea Verified 09/21/17 00:02 WHEAT Allergy Severe Anaphylatic Uncoded 09/21/17 00:02 Shock ADHESIVE Allergy NICE Uncoded 09/21/17 00:02 SKIN, ITCHY IRRITATED ENVIRONMENTAL Allergy Congestion Uncoded 09/21/17 00:02 LATEX Allergy Rash And Uncoded 09/21/17 00:02 Itching PMH/Surg Hx/FS Hx/Imm Hx Endocrine/Hematology History: Denies: Hx Diabetes - A1C 5, Hx Thyroid Disease Cardiovascular History: Reports: Hx Angina, Hx Hypertension - on meds, Other Cardiovascular Problems/Disorders - pulmonary hypertension Denies: Hx Pacemaker/ICD Respiratory History: Reports: Hx Asthma Denies: Hx Chronic Obstructive Pulmonary Disease (COPD), Hx Sleep Apnea GI History: Denies: Hx Ulcer, Other GI Disorders History: Reports: Other Problems/Disorders - HX- KIDNEY STONES-2006 Denies: Hx Renal Disease Musculoskeletal History: Reports: Hx Arthritis, Hx Back Problems, Hx Tendonitis , Other Musculoskeletal History - LAMINECTOMY x 2, SPINAL FUSION DISCECTOMY Sensory History: Reports: Hx Contacts or Glasses - CONTACTS, WILL WEAR GLASSES DAY OF SURGERY Denies: Hx Hearing Aid Opthamlomology History: Reports: Hx Contacts or Glasses - CONTACTS, WILL WEAR GLASSES DAY OF SURGERY Neurological History: Reports: Hx Headaches, Hx Migraine - ALLERGY TRIGGERED, Hx Nerve Disease, Other Neuro Impairments/Disorders - RADICULOPATHY, NEUROPATHY Psychiatric History: Denies: Hx Depression, Hx Panic Disorder - Surgical History Surgery Procedure, Year, and Place: [id number] 6 TOTAL BACK SURGERIES INCLUDING LUMBAR SPINAL FUSIONS AND LAMINECTOMIES, [facility]. 07/2016 DILATION AND CURETTAGE, [facility] [place]. 04/2016 RIGHT WRIST TUMOR REMOVED/RIGHT MIDDLE FINGER REMOVAL OF TISSUE, [facility] [place]. 08/2014 SPINAL STIMULATOR IMPLANT, [place]. [id number] 3 SETS OF EAR TUBES A CHILD, [facility]. 1992 T & A, [facility] Hx Anesthesia Reactions: No Infectious Disease History: No Infectious Disease History: Reports: Hx of Known/Suspected MRSA, History Other Infectious Disease - MRSA Denies: Hx Clostridium Difficile, Hx Hepatitis, Hx Human Immunodeficiency Virus (HIV), Hx Shingles, Hx Tuberculosis, Hx Known/Suspected VRE, Hx Known/ Suspected VRSA, Traveled Outside the [place] in Last 30 Days - Family History Known Family History: Positive: Cardiac Disease, Hypertension, Diabetes, Other - POS: [place] - Social History Alcohol Use: None Substance Use Type: Reports: None Smoking Status (MU): Never Smoked Tobacco Have You Smoked in the Last Year: No Review of Systems Negative: Fever Negative: Chest Pain Negative: Shortness Of Breath Positive: Other - laceration of left arm All Other Systems Reviewed And Are Negative: Yes Physical Exam Triage Information Reviewed: Yes Vital Signs On Initial Exam: Initial Vitals Temp Pulse Resp BP Pulse Ox 97.3 F 82 16 118/64 99 09/20/17 23:58 09/20/17 23:58 09/20/17 23:58 09/20/17 23:58 09/20/17 23:58 Vital Signs Reviewed: Yes Appearance: Positive: Well-Appearing Skin: Positive: Warm, Dry, Other - 2cm laceration on left forearm with 1/4cm by 1/8cm open area with minimial bleeding present Head/Face: Positive: Normal Head/Face Inspection Eyes: Positive: Normal, Conjunctiva Clear Respiratory/Lung Sounds: Positive: Clear to Auscultation, Breath Sounds Present Cardiovascular: Positive: Normal, RRR Musculoskeletal: Positive: Strength/ROM Intact - left arm, Other - good pulses, capillary refill<2secs Neurological: Positive: Normal Psychiatric: Positive: Normal Diagnostics - Vital Signs Vital Signs Temp Pulse Resp BP Pulse Ox 09/20/17 23:58 97.3 F 82 16 118/64 99 - Laboratory Lab Statement: Any lab studies that have been ordered have been reviewed, and results considered in the medical decision making process. Laceration Repair Course/Dx - Course Course Of Treatment: 31F presents with reopening of left arm laceration today. She states she had a cyst removal last week by dr kemp. She states that suture were removed yesterday and today with movement an area spit open and started to bleed. She denies any fever or spreading redness. She denies any pus. She has full ROM of wrist. She is right handed. She is immunocompromised so is worried about infection. on exam 1/4cm area with minimial bleeding that is open by 1/8cm. no signs of spreading redness or infection. due to being immunocompromised with d/c with augmentin. patient understand and agrees with plan. - Differential Dx Differental Diagnoses: Abrasion, Avulsion, Dehiscence, Laceration - Clinical Impression Provider Diagnoses: Healing laceration Discharge - Discharge Plan Condition: Good Disposition: HOME Prescriptions: Amoxicillin/Clavulanate TAB* [Augmentin TAB 500 mg*] 500 mg PO BID #13 tab Patient Education Materials: Laceration Without Closure (ED) Referrals: Margarita Esquivel NP [Primary Care Provider] - Additional Instructions: Place neosporin on area, keep covered Take antibiotic twice a day for 7 days Follow up with ortho as scheduled Return to ED if develop any new or worsening symptoms
[2017-09-21] MEDS ORDERED: Amoxicillin/Clavulanate TAB* 500 MG PO ONE (00:39)
== END 2017-09-21 01:05 | disposition home or self-care (01) ==
LOC: ED 23:53
DX: S51.812A Laceration without foreign body of left forearm, initial encounter (principal); X58.XXXA Exposure to other specified factors, initial encounter; Y92.9 Unspecified place or not applicable; Z88.2 Allergy status to sulfonamides
CPT/HCPCS: 99282; A9270-GY

== ENCOUNTER 2018-01-02 02:31 | Emergency (ER) | payer MEDICARE, MEDICAID ==
[2018-01-02] MEDS ORDERED: Ketorolac INJ* 30 MG/ML 1 ML VIAL IV PUSH ONE (03:38)
[2018-01-02] MEDS ORDERED: Morphine INJ* 4 MG/ML 1 ML SYRINGE (NEW SYRINGE VERSION) IV ONE (03:39)
[2018-01-02 04:05] LABS: Urine Appearance Clear; Urine Blood Negative (Negative); Urine Color Yellow; Urine Ketones Negative (Negative); Urine Protein Negative (Negative); Urine Specific Gravity 1.009 (1.010-1.030); Urine Urobilinogen Negative (Negative)
[2018-01-02 04:25] LABS: ABS Basophils 0.1 10^3/ul (0-0.2); ABS Eosinophils 0.1 10^3/ul (0-0.6); ABS Lymphocytes 4.9 10^3/ul (1.0-4.8); ABS Monocytes 0.8 10^3/ul (0-0.8); ABS Neutrophils 4.7 10^3/ul (1.5-7.7); ABS Nucleated RBC 0 10^3/ul; Eosinophil % 1.3 % (0-6); Hematocrit 37 % (35-47); Hemoglobin 12.7 g/dl (12.0-16.0); Lymphocyte % 46.1 % (25-47); Mean Corpuscular HGB Conc 34 g/dl (31-36); Mean Corpuscular Hemoglobin 30 pg (27-31); Mean Corpuscular Volume 88 fL (80-97); Mean Platelet Volume 7.8 um3 (7.4-10.4); Nucleated Red Blood Cells % 0; Platelet Count 271 10^3/ul (150-450); Red Blood Count 4.27 10^6/ul (4.0-5.4); Red Cell Distribution Width 13 % (10.5-15); White Blood Count 10.5 10^3/ul (3.5-10.8)
[2018-01-02 04:38] LABS: EGFR Non-African American 110.9 (>60)
[2018-01-02] MEDS ORDERED: Metoclopramide IV* 5 MG/ML 2 ML VIAL IV SLOW PU ONE (05:23)
[2018-01-02] MEDS ORDERED: traMADol TAB* 50 MG PO ONE (05:24)
[2018-01-02] MEDS ORDERED: HYDROmorphone INJ* 1 MG/ML CARPUJECT SYRINGE IV SLOW PU ONE (06:13)
[2018-01-02] MEDS ORDERED: fentaNYL* 50 MCG/ML 2 ML VIAL (100 MCG VIAL) IV SLOW PU ONE (07:14)
[2018-01-02 08:04] VITALS: BP 130/63
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
--- NOTE | 2018-01-02 10:37 | RAD ---
Indication: Diffuse spinal pain without recent injury. Previous fusion. Comparison: May 23, 2017 CT. Technique: Noncontrast CT lumbar sacral spine. Multiplanar reformation. Report: Postsurgical change of RIGHT unilateral L5-S1 laminotomy and anterior and posterior L5-S1 fusion. Negative for fracture or spondylolysis at any level. Normal vertebral alignment without spondylolisthesis at any level. T12-L1: Unremarkable disc level for age without acquired spinal stenosis. L1-L2: Unremarkable disc level for age without acquired spinal stenosis. L2-L3: Unremarkable disc level for age without acquired spinal stenosis. L3-L4: Unremarkable disc level for age without acquired spinal stenosis. L4-L5: Annular disc bulge and posterior element hypertrophic arthropathy superimposed on congenitally short pedicles results in moderately severe acquired central canal stenosis without change. Same factors result in mild LEFT unilateral foraminal stenosis without change L5-S1: Dorsal spondylitic ridging disc complex and posterior element hypertrophic arthropathy superimposed on congenitally short pedicles results in mild acquired central canal stenosis without change. Same factors result in mild RIGHT and moderate LEFT foraminal stenosis without change. Partially visualized dorsal column stimulator leads at the cephalad margin of the [id number]. Refer to dedicated thoracic spine report for further description. Mild posterior subcutaneous edema without evidence for a loculated soft tissue plane fluid collection. IMPRESSION: 1. Postsurgical change of RIGHT unilateral L5-S1 laminotomy and anterior and posterior L5-S1 fusion. 2. Unchanged CT findings of acquired spinal stenosis at L4-L5 and L5-S1 as described.
--- NOTE | 2018-01-06 20:40 | ED ---
Faraz Downs Tecjoon, scribed for Benito Bruno MD on 01/02/18 at 0329 . Headache - HPI Summary HPI Summary: This patient is a 32 year old female presenting to [facility] with a chief complaint of headache and general bodyaches since approx. 2.5 weeks ago. Patient states that the pain has occurred since her IVIG infusion. The pain is rated 10/10 in severity. Symptoms aggravated by nothing. Symptoms alleviated by nothing. Patient additionally reports back pain, myalgia, neck pain, nausea. - History Of Current Complaint Chief Complaint: EDHeadache Stated Complaint: HEADACHE Time Seen by Provider: 01/02/18 03:13 Hx Obtained From: Patient Hx Last Menstrual Period: 3 months ago Onset/Duration: Started weeks ago, Still Present Currently Pain Is: Current Pain Scale(0-10)= - 10 Timing: Constant Aggravating Factor: Nothing Allevating Factors: Nothing Associated Signs And Symptoms: Other (Noted In Comments) - back pain, myalgia, neck pain, nausea - Allergies/Home Medications Allergies/Adverse Reactions: Allergies Allergy/AdvReac Type Severity Reaction Status Date / Time ciprofloxacin [From Cipro] Allergy Swelling Verified 01/02/18 02:41 Of Face,Lips,& Throat clarithromycin [From Biaxin] Allergy Anaphylatic Verified 01/02/18 02:39 Shock clindamycin Allergy Anaphylatic Verified 01/02/18 02:39 Shock dexamethasone Allergy Hives Verified 01/02/18 02:41 gabapentin [From Neurontin] Allergy Hives Verified 01/02/18 02:41 hydrocodone Allergy Nausea And Verified 01/02/18 02:45 Vomiting levofloxacin [From Levaquin] Allergy Leg Cramps Verified 01/02/18 02:45 methylprednisolone Allergy Altered Verified 01/02/18 02:43 Mental Status minocycline Allergy Hives Verified 01/02/18 02:42 mupirocin [From Bactroban] Allergy Hives Verified 01/02/18 02:42 oxaprozin [From Daypro] Allergy Rash Verified 01/02/18 02:43 oxycodone Allergy Altered Verified 01/02/18 02:43 Mental Status pregabalin [From Lyrica] Allergy Shakes Verified 01/02/18 02:40 rofecoxib [From Vioxx] Allergy Hives Verified 01/02/18 02:42 sulfamethoxazole Allergy Airway Verified 01/02/18 02:40 [From Bactrim] Obstruction tapentadol [From Nucynta] Allergy Shakes Verified 01/02/18 02:46 tizanidine [From Zanaflex] Allergy See Comment Verified 01/02/18 02:46 tramadol [From Ultram] Allergy Nausea Verified 01/02/18 02:46 trimethoprim [From Bactrim] Allergy Airway Verified 01/02/18 02:40 Obstruction vancomycin Allergy Rash Verified 01/02/18 02:44 WHEAT Allergy Severe Anaphylatic Uncoded 01/02/18 03:42 Shock ADHESIVE Allergy NICE Uncoded 01/02/18 03:42 SKIN, ITCHY IRRITATED ENVIRONMENTAL Allergy Congestion Uncoded 01/02/18 03:42 LATEX Allergy Rash And Uncoded 01/02/18 03:42 Itching Home Medications: Home Medications Ferrous Sulfate [Ferrous Sulfate] 325 mg PO DAILY 01/02/18 [History Confirmed ] Folic Acid [Folic Acid] 1 mg PO DAILY 01/02/18 [History Confirmed 01/02/18] PMH/Surg Hx/FS Hx/Imm Hx Previously Healthy: No Endocrine/Hematology History: Denies: Hx Diabetes - A1C 5, Hx Thyroid Disease Cardiovascular History: Reports: Hx Angina, Hx Hypertension - on meds, Other Cardiovascular Problems/Disorders - pulmonary hypertension Denies: Hx Pacemaker/ICD Respiratory History: Reports: Hx Asthma Denies: Hx Chronic Obstructive Pulmonary Disease (COPD), Hx Sleep Apnea GI History: Denies: Hx Ulcer, Other GI Disorders History: Reports: Other Problems/Disorders - HX- KIDNEY STONES-2006 Denies: Hx Renal Disease Musculoskeletal History: Reports: Hx Arthritis, Hx Back Problems, Hx Tendonitis , Other Musculoskeletal History - LAMINECTOMY x 2, SPINAL FUSION DISCECTOMY Sensory History: Reports: Hx Contacts or Glasses - CONTACTS, WILL WEAR GLASSES DAY OF SURGERY Denies: Hx Hearing Aid Opthamlomology History: Reports: Hx Contacts or Glasses - CONTACTS, WILL WEAR GLASSES DAY OF SURGERY Neurological History: Reports: Hx Headaches, Hx Migraine - ALLERGY TRIGGERED, Hx Nerve Disease, Other Neuro Impairments/Disorders - RADICULOPATHY, NEUROPATHY Psychiatric History: Denies: Hx Depression, Hx Panic Disorder - Surgical History Surgery Procedure, Year, and Place: [id number] 6 TOTAL BACK SURGERIES INCLUDING LUMBAR SPINAL FUSIONS AND LAMINECTOMIES, [facility]. 07/2016 [place] [facility] [place] RIGHT WRIST TUMOR REMOVED/RIGHT MIDDLE FINGER [place] [facility] [place]. [place]2014 SPINAL STIMULATOR IMPLANT, [place]. [id number] 3 SETS OF EAR TUBES A CHILD, [facility]. 1992 T & A, [facility] Hx Anesthesia Reactions: No Infectious Disease History: No Infectious Disease History: Reports: Hx of Known/Suspected MRSA, History Other Infectious Disease - MRSA Denies: Hx Clostridium Difficile, Hx Hepatitis, Hx Human Immunodeficiency Virus (HIV), Hx Shingles, Hx Tuberculosis, Hx Known/Suspected VRE, Hx Known/ Suspected VRSA, Traveled Outside the in Last 30 Days - Family History Known Family History: Positive: Cardiac Disease, Hypertension, Diabetes, Other - POS: [place] - Social History Alcohol Use: None Hx Substance Use: No Substance Use Type: Reports: None Hx Tobacco Use: No Smoking Status (MU): Never Smoked Tobacco Have You Smoked in the Last Year: No Review of Systems Negative: Fever Positive: Nausea Positive: Myalgia, Other - back pain Neurological: Other - neck pain Positive: Headache All Other Systems Reviewed And Are Negative: Yes Physical Exam - Summary Physical Exam Summary: Appearance: Well-appearing, no distress, Well-nourished Skin: Warm, color reflects adequate perfusion Head: Normal Head/Face inspection Eyes: Conjunctiva clear ENT: Normal inspection Neck: Supple, no nodes, no JVD. Respiratory: Lungs clear, Normal breath sounds, no respiratory distress Cardio: RRR, No murmur, pulses normal, brisk capillary refill Abdomen: soft, nontender, no guarding, no rebound Bowel sounds: present Musculoskeletal: Tenderness at midline spinal at l2-l3, Mild swelling, No erythema, No bony abmornalities. Tenderness to palp at upper thoracic, lower cervical at midline. No swelling, no erythema Neuro: Alert, muscle tone normal, facial symmetry, speech normal, sensory/motor intact Psychological: Normal Triage Information Reviewed: Yes Vital Signs On Initial Exam: Initial Vitals Temp Pulse Resp BP Pulse Ox 97.5 F 83 16 133/68 99 01/02/18 02:34 01/02/18 02:34 01/02/18 02:34 01/02/18 02:34 01/02/18 02:34 Vital Signs Reviewed: Yes Diagnostics - Vital Signs Vital Signs Temp Pulse Resp BP Pulse Ox 01/02/18 02:34 97.5 F 83 16 133/68 99 - Laboratory Lab Results: Lab Results 01/02/18 01/02/18 01/02/18 Range/Units 03:51 04:05 04:05 WBC 10.5 (3.5-10.8) 10^3/ul RBC 4.27 (4.0-5.4) 10^6/ul Hgb 12.7 (12.0-16.0) g/dl Hct 37 (35-47) % MCV 88 (80-97) fL MCH 30 (27-31) pg MCHC 34 (31-36) g/dl RDW 13 (10.5-15) % Plt Count 271 (150-450) 10^3/ul MPV 7.8 (7.4-10.4) um3 Neut % (Auto) 44.2 (38-83) % Lymph % (Auto) 46.1 (25-47) % [place] % (Auto) 7.2 H (0-7) % Eos % (Auto) 1.3 (0-6) % Baso % (Auto) 1.2 (0-2) % Absolute Neuts (auto) 4.7 (1.5-7.7) 10^3/ul Absolute Lymphs (auto) 4.9 H (1.0-4.8) 10^3/ul Absolute Monos (auto) 0.8 (0-0.8) 10^3/ul Absolute Eos (auto) 0.1 (0-0.6) 10^3/ul Absolute Basos (auto) 0.1 (0-0.2) 10^3/ul Absolute Nucleated RBC 0 10^3/ul Nucleated RBC % 0 Sodium 136 (133-145) mmol/L Potassium TNP Chloride 103 (101-111) mmol/L Carbon Dioxide 24 (22-32) mmol/L Anion Gap 9 (2-11) mmol/L BUN 11 (6-24) mg/dL Creatinine 0.62 (0.51-0.95) mg/dL Est GFR ( Amer) 142.6 (>60) Est GFR (Non-Af Amer) 110.9 (>60) BUN/Creatinine Ratio 17.7 (8-20) Glucose 105 H (70-100) mg/dL Calcium 9.3 (8.6-10.3) mg/dL Total Bilirubin 0.30 (0.2-1.0) mg/dL AST TNP ALT 25 (7-52) U/L Alkaline Phosphatase 63 (34-104) U/L C-Reactive Protein 20.35 H (< 5.00) mg/L Total Protein 7.5 (6.4-8.9) g/dL Albumin 4.0 (3.2-5.2) g/dL Globulin 3.5 (2-4) g/dL Albumin/Globulin Ratio 1.1 (1-3) Beta HCG, Quant 0.70 mIU/mL Urine Color Yellow Urine Appearance Clear Urine pH 6.0 (5-9) Ur Specific [place] 1.009 L (1.010-1.030) Urine Protein Negative (Negative) Urine Ketones Negative (Negative) Urine Blood Negative (Negative) Urine Nitrate Negative (Negative) Urine Bilirubin Negative (Negative) Urine Urobilinogen Negative (Negative) Ur Leukocyte Esterase Negative (Negative) Urine Glucose Negative (Negative) 01/02/18 Range/Units 05:10 WBC (3.5-10.8) 10^3/ul RBC (4.0-5.4) 10^6/ul Hgb (12.0-16.0) g/dl Hct (35-47) % MCV (80-97) fL MCH (27-31) pg MCHC (31-36) g/dl RDW (10.5-15) % Plt Count (150-450) 10^3/ul MPV (7.4-10.4) um3 Neut % (Auto) (38-83) % Lymph % (Auto) (25-47) % [place] % (Auto) (0-7) % Eos % (Auto) (0-6) % Baso % (Auto) (0-2) % Absolute Neuts (auto) (1.5-7.7) 10^3/ul Absolute Lymphs (auto) (1.0-4.8) 10^3/ul Absolute Monos (auto) (0-0.8) 10^3/ul Absolute Eos (auto) (0-0.6) 10^3/ul Absolute Basos (auto) (0-0.2) 10^3/ul Absolute Nucleated RBC 10^3/ul Nucleated RBC % Sodium (133-145) mmol/L Potassium 3.6 Chloride (101-111) mmol/L Carbon Dioxide (22-32) mmol/L Anion Gap (2-11) mmol/L BUN (6-24) mg/dL Creatinine (0.51-0.95) mg/dL Est GFR ( Amer) (>60) Est GFR (Non-Af Amer) (>60) BUN/Creatinine Ratio (8-20) Glucose (70-100) mg/dL Calcium (8.6-10.3) mg/dL Total Bilirubin (0.2-1.0) mg/dL AST 21 ALT (7-52) U/L Alkaline Phosphatase (34-104) U/L C-Reactive Protein (< 5.00) mg/L Total Protein (6.4-8.9) g/dL Albumin (3.2-5.2) g/dL Globulin (2-4) g/dL Albumin/Globulin Ratio (1-3) Beta HCG, Quant mIU/mL Urine Color Urine Appearance Urine pH (5-9) Ur Specific [place] (1.010-1.030) Urine Protein (Negative) Urine Ketones (Negative) Urine Blood (Negative) Urine Nitrate (Negative) Urine Bilirubin (Negative) Urine Urobilinogen (Negative) Ur Leukocyte Esterase (Negative) Urine Glucose (Negative) Result Diagrams: 01/02/18 04:05 01/02/18 05:10 Lab Statement: Any lab studies that have been ordered have been reviewed, and results considered in the medical decision making process. - CT CT L-Spine CT Interpretation: Positive (See Comments) - CT L-Spine reveals, per radiologist , No fracture or subluxation. Level by level is partially obscured by streak artifact, but there may be a small central disc herniation causing mild central canal narrowing. ED physician has reviewed this radiology report. CT Interpretation Completed By: Radiologist CT C-Spine CT Interpretation: Positive (See Comments) - CT C-Spine reveals, per radiologist , IMPRESSION: Small disc bulges at C3-4 and C5-6 levels. ED physician has reviewed this radiology report. CT Interpretation Completed By: Radiologist CT T-Spine CT Interpretation: No Acute Changes - CT T-Spine reveals, per radiologist, IMPRESSION: No evidence of pathology. ED physician has reviewed this radiology report. CT Interpretation Completed By: Radiologist CT Head CT Interpretation: No Acute Changes CT Interpretation Completed By: Radiologist Re-Evaluation - Re-Evaluation First Eval Re-Evaluation Time: 05:15 Change: Improved Comment: Pt states pain mildly improved. Plan for second dose IV analgesia. Will reevaluate. Second Eval Re-Evaluation Time: 06:30 Change: Improved Comment: Pt pain improved, however back pain now 6/10. Plan for repeat IV analgesia. Third Eval Re-Evaluation Time: 07:58 Change: Improved Comment: Pt back pain and headache improved with thrid dose IV analgesia. Plan for outpt pain control with f/u with PCP in 2-3 days. Headache Course/Dx - Diagnoses Differential Diagnosis/HQI/PQRI: TIA, Epidural Hematoma, Subdural Hematoma, Sinus Headache, Tension Headache, Viral Syndrome Provider Diagnoses: Back pain, Inflammation Discharge - Sign-Out/Discharge Documenting (check all that apply): Discharge - Discharge Plan Condition: Improved Disposition: HOME Prescriptions: Ondansetron ODT TAB* [Zofran 4 MG Odt TAB*] 4 mg PO Q8H PRN #8 tab.odt PRN Reason: Nausea Oxycodone HCl/Acetaminophen [Percocet 7.5-325 mg Tablet] 1 each PO Q4HR PRN #12 tablet MDD 6 tablets PRN Reason: Pain Patient Education Materials: Acute Low Back Pain (ED), Acute Headache (ED) Referrals: Margarita Esquivel QUILL SKINNER [Primary Care Provider] - - Billing Disposition and Condition Condition: IMPROVED Disposition: HOME The documentation as recorded by the Faraz madrigal Tecjoon accurately reflects the service I personally performed and the decisions made by me, Benito Bruno MD.
== END 2018-01-02 08:12 | disposition home or self-care (01) ==
LOC: ED 02:31
DX: R51 Headache (principal); M54.5 Low back pain; M54.2 Cervicalgia; M54.6 Pain in thoracic spine; I20.9 Angina pectoris, unspecified; I10 Essential (primary) hypertension; Z88.1 Allergy status to other antibiotic agents; Z88.5 Allergy status to narcotic agent; Z88.8 Allergy status to other drugs, medicaments and biological substances
CPT/HCPCS: 36415; 70450; 72125; 72128; 72131; 80053; 81003; 84702; 85025; 86140; 96374; 96375; 99283; J1170; J1885; J2270; J3010

== ENCOUNTER 2018-01-26 16:33 | Emergency (ER) | payer MEDICARE, MEDICAID ==
[2018-01-26 16:52] VITALS: BP 116/54
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
== END 2018-01-26 18:34 | disposition home or self-care (01) ==
LOC: UCEAST 16:33
DX: T23.212A Burn of second degree of left thumb (nail), initial encounter (principal); X19.XXXA Contact with other heat and hot substances, initial encounter; Y93.89 Activity, other specified; Y92.9 Unspecified place or not applicable; E28.2 Polycystic ovarian syndrome; E11.9 Type 2 diabetes mellitus without complications; Z79.84 Long term (current) use of oral hypoglycemic drugs; I10 Essential (primary) hypertension; J45.909 Unspecified asthma, uncomplicated; Z88.1 Allergy status to other antibiotic agents; Z91.040 Latex allergy status; Z88.5 Allergy status to narcotic agent; Z88.2 Allergy status to sulfonamides; Z88.8 Allergy status to other drugs, medicaments and biological substances; Z91.048 Other nonmedicinal substance allergy status
CPT/HCPCS: 99212; G0463

== ENCOUNTER 2018-06-02 15:19 | Emergency (ER) | payer MEDICARE, MEDICAID ==
--- NOTE | 2018-06-02 15:41 | ED ---
Abdominal Pain/Female - HPI Summary HPI Summary: 32 y/o female presents to the ED c/o L sided ABD pain for over 1 week, still present. Pain rated 10/10. Seen at PCP yesterday, CT done. PMHx polycystic ovarian disease, tachycardia. Associated sx: mild SHERWOOD, fever 100.8, nausea. Denies urinary symptoms, V/D. Pt also c/o ecchymosis @ legs and ABD, unknown cause. - History of Current Complaint Chief Complaint: EDAbdPain Stated Complaint: FEVER/ABD PAIN Hx Obtained From: Patient Hx Last Menstrual Period: PCOS Onset/Duration: Lasting Days, Still Present Timing: Constant Pain Intensity: 10 Pain Scale Used: 0-10 Numeric Location: Other - L side Aggravating Factor(s): Nothing Alleviating Factor(s): Nothing Associated Signs and Symptoms: Positive: Fever, Nausea, Other: - bruising, SHERWOOD. Negative: Urinary Symptoms, Vomiting, Diarrhea Allergies/Adverse Reactions: Allergies Allergy/AdvReac Type Severity Reaction Status Date / Time cetirizine [From Zyrtec] Allergy throat Verified 06/02/18 15:42 swelling ciprofloxacin [From Cipro] Allergy Swelling Verified 06/02/18 15:42 Of Face,Lips,& Throat clarithromycin [From Biaxin] Allergy Anaphylatic Verified 06/02/18 15:42 Shock clindamycin Allergy Anaphylatic Verified 06/02/18 15:42 Shock dexamethasone Allergy Hives Verified 06/02/18 15:42 gabapentin [From Neurontin] Allergy Hives Verified 06/02/18 15:42 minocycline Allergy Hives Verified 06/02/18 15:42 mupirocin [From Bactroban] Allergy Hives Verified 06/02/18 15:42 oxaprozin [From Daypro] Allergy Rash Verified 06/02/18 15:42 rofecoxib [From Vioxx] Allergy Hives Verified 06/02/18 15:42 sulfamethoxazole Allergy Airway Verified 06/02/18 15:42 [From Bactrim] Obstruction tizanidine [From Zanaflex] Allergy See Comment Verified 06/02/18 15:42 trimethoprim [From Bactrim] Allergy Airway Verified 06/02/18 15:42 Obstruction vancomycin Allergy Rash Verified 06/02/18 15:42 hydrocodone AdvReac Nausea And Verified 06/02/18 15:42 Vomiting levofloxacin [From Levaquin] AdvReac Leg Cramps Verified 06/02/18 15:42 methylprednisolone AdvReac Altered Verified 06/02/18 15:42 Mental Status pregabalin [From Lyrica] AdvReac Shakes Verified 06/02/18 15:42 tapentadol [From Nucynta] AdvReac Shakes Verified 06/02/18 15:42 tramadol [From Ultram] AdvReac Nausea Verified 06/02/18 15:42 WHEAT Allergy Severe Anaphylatic Uncoded 06/02/18 15:42 Shock ADHESIVE Allergy NICE Uncoded 06/02/18 15:42 SKIN, ITCHY IRRITATED ENVIRONMENTAL Allergy Congestion Uncoded 06/02/18 15:42 LATEX Allergy Rash And Uncoded 06/02/18 15:42 Itching Home Medications: Home Medications dilTIAZem HCl [Diltiazem 24Hr Cd] 120 mg PO DAILY 06/02/18 [History Confirmed ] PMH/Surg Hx/FS Hx/Imm Hx Previously Healthy: No Endocrine/Hematology History: Reports: Other Endocrine/Hematological Disorders - SJOGRENS, CVID, PSORIASIS, RA/PSORIATIC ARTHRITIS Denies: Hx Diabetes, Hx Thyroid Disease Cardiovascular History: Reports: Hx Angina, Other Cardiovascular Problems/ Disorders - pulmonary hypertension Denies: Hx Hypertension - on meds, Hx Pacemaker/ICD Respiratory History: Reports: Hx Asthma Denies: Hx Chronic Obstructive Pulmonary Disease (COPD), Hx Sleep Apnea GI History: Denies: Hx Ulcer, Other GI Disorders History: Reports: Other Problems/Disorders - HX- KIDNEY STONES-2006 Denies: Hx Renal Disease Musculoskeletal History: Reports: Hx Arthritis - RA, psoriatic, osteo, Hx Back Problems - LAMINECTOMY x 2, SPINAL FUSION DISCECTOMY, Hx Fibromyalgia, Hx Tendonitis, Other Musculoskeletal History - SPINAL STIMULATOR Sensory History: Reports: Hx Contacts or Glasses - CONTACTS Denies: Hx Hearing Aid Opthamlomology History: Reports: Hx Contacts or Glasses - CONTACTS Neurological History: Reports: Hx Headaches, Hx Migraine - ALLERGY TRIGGERED, Hx Nerve Disease, Other Neuro Impairments/Disorders - RADICULOPATHY, NEUROPATHY Psychiatric History: Denies: Hx Depression, Hx Panic Disorder - Surgical History Surgery Procedure, Year, and Place: 8115-3204 6 TOTAL BACK SURGERIES INCLUDING LUMBAR SPINAL FUSIONS AND LAMINECTOMIES, [facility]. 07/2016 DILATION AND CURETTAGE, [facility]. 04/2016 RIGHT WRIST TUMOR REMOVED/RIGHT MIDDLE FINGER REMOVAL OF TISSUE, [facility] [place]. 08/2014 SPINAL STIMULATOR IMPLANT, [facility]. [id number] 3 SETS OF EAR TUBES A CHILD, [facility] 1992 [facility]. 2017 - left wrist cyst removed Hx Anesthesia Reactions: No Infectious Disease History: No Infectious Disease History: Reports: Hx of Known/Suspected MRSA, History Other Infectious Disease - MRSA Denies: Hx Clostridium Difficile, Hx Hepatitis, Hx Human Immunodeficiency Virus (HIV), Hx Shingles, Hx Tuberculosis, Hx Known/Suspected VRE, Hx Known/ Suspected VRSA, Traveled Outside the in Last 30 Days - Family History Known Family History: Positive: Cardiac Disease, Hypertension, Diabetes, Other - POS: [place] - Social History Alcohol Use: None Hx Substance Use: No Substance Use Type: Reports: None Hx Tobacco Use: No Smoking Status (MU): Never Smoked Tobacco Have You Smoked in the Last Year: No Review of Systems Positive: Fever Eyes: Negative ENT: Negative Cardiovascular: Negative Respiratory: Negative Positive: Abdominal Pain, Nausea. Negative: Vomiting, Diarrhea Genitourinary: Negative Musculoskeletal: Negative Positive: Bruising - legs and ABD Positive: Headache Psychological: Normal All Other Systems Reviewed And Are Negative: No Physical Exam - Summary Physical Exam Summary: Appearance: Alert, conversive, nontoxic appearing Skin: Warm, dry, no mottling, no rashes, no contusions HEENT: EOMI, PERRL, slightly dry mucous membranes Neck: No masses on the neck, supple Respiratory: Clear to auscultation, breath sounds present, no rales, no rhonchi , no wheezes Cardiovascular: RRR, pulses are symmetrical in both lower and upper extremities Abdomen: Soft, mild diffuse tenderness. Bowel Sounds: Present Musculoskeletal: No CVA tenderness, no obvious deformity, moving all extremities in a grossly normal manner Neurological: A&Ox3, CN II-XII Intact, moving all extremities symmetrically Psychiatric: Normal affect and mood Triage Information Reviewed: Yes Vital Signs On Initial Exam: Initial Vitals Temp Pulse Resp BP Pulse Ox 97.8 F 92 20 128/78 97 06/02/18 15:21 06/02/18 15:21 06/02/18 15:21 06/02/18 15:21 06/02/18 15:21 Vital Signs Reviewed: Yes Diagnostics - Vital Signs Vital Signs Temp Pulse Resp BP Pulse Ox 06/02/18 15:21 97.8 F 92 20 128/78 97 - Laboratory Result Diagrams: 06/02/18 16:00 06/02/18 16:00 Lab Statement: Any lab studies that have been ordered have been reviewed, and results considered in the medical decision making process. - Ultrasound No standard instances Ultrasound Interpretation: Positive (See Comments) - Transvaginal - 1.7 cm L- sided follicle, otherwise negative. Ultrasound Interpretation Completed By: Radiologist Re-Evaluation - Re-Evaluation 1 Re-Evaluation Time: 17:20 Comment: Discussed test results and findings, plan of care Abdominal Pain Fem Course/Dx - Course Course Of Treatment: 32 y/o female c/o L side ABD pain for over 1 week. Seen by PCP yesterday, CT scan done. Transvaginal US shows - 1.7 cm L-sided follicle, otherwise negative. Pt will be d/c home. Pt requests blood cultures. - Diagnoses Provider Diagnoses: Abdominal pain Discharge - Sign-Out/Discharge Documenting (check all that apply): Patient Departure - Discharge Plan Condition: Stable Disposition: HOME Patient Education Materials: Acute Abdominal Pain (ED) Referrals: Margarita Esquivel NP [Primary Care Provider] - Additional Instructions: take your oxycodones as previously instructed. return if worse or any new symptoms. Take all other medications as previously instructed. follow up with your doctor on Wednesday. - Billing Disposition and Condition Condition: STABLE Disposition: Home - Attestation Statements Document Initiated by Scribe: Yes Documenting Scribe: Denver Khan Provider For Whom Scribe is Documenting (Include Credential): Lisa Jones MD Scribe Attestation: Denver Downs, scribed for Lisa Jones MD on 06/02/18 at 1815. Scribe Documentation Reviewed: Yes Provider Attestation: The documentation as recorded by the Denver madrigal accurately reflects the service I personally performed and the decisions made by me, Lisa Jones MD
[2018-06-02 16:11] LABS: ABS Basophils 0 10^3/ul (0-0.2); ABS Eosinophils 0.1 10^3/ul (0-0.6); ABS Lymphocytes 2.1 10^3/ul (1.0-4.8); ABS Monocytes 0.3 10^3/ul (0-0.8); ABS Neutrophils 3.8 10^3/ul (1.5-7.7); ABS Nucleated RBC 0 10^3/ul; Eosinophil % 1.6 % (0-6); Hematocrit 39 % (35-47); Hemoglobin 13.3 g/dl (12.0-16.0); Lymphocyte % 33.2 % (25-47); Mean Corpuscular HGB Conc 34 g/dl (31-36); Mean Corpuscular Hemoglobin 30 pg (27-31); Mean Corpuscular Volume 86 fL (80-97); Mean Platelet Volume 7.3 um3 (7.4-10.4); Nucleated Red Blood Cells % 0.1; Platelet Count 279 10^3/ul (150-450); Red Blood Count 4.47 10^6/ul (4.00-5.40); Red Cell Distribution Width 13 % (10.5-15); White Blood Count 6.3 10^3/ul (3.5-10.8)
[2018-06-02] MEDS ORDERED: Ketorolac INJ* 30 MG/ML 1 ML VIAL IV PUSH ONE (16:11)
--- OUTSIDE RECORDS SUMMARY | 2018-06-02 16:11 | XMS REPORT ---
:1985 External Reference #:[id number] Author Organization [facility] Address [address] [place] [address] Phone [phone] Care Team Providers Name Role Phone Margarita Esquivel NP Care Team Information Family Service Caseworker Unavailable Margarita Esquivel NP Primary Care Physician Unavailable Payers Type Date Identification Numbers Payment Provider Subscriber Medicare Primary Effective: Policy Number: Medicare [facility] Hillary Levin 2016 [id number] Lorraine PayID: [id number] [address] [facility] [place] [address] Commercial Expires: 2016 Policy Number: [facility] Hillary Levin [id number] [place] PayID: [id number] [address] [place] [address] Medigap Part B Policy Number: [id number] Medicaid [place] Hillary Levin Olrraine PayID: [id number] [address] [place] [address] Problems Date Description Provider Status Onset: 09/30/2015 Common variable agammaglobulinemia Jony Wise MD Active Onset: 09/30/2015 Acute maxillary sinusitis Jony Wise MD Active Onset: 09/30/2015 Exacerbation of mild persistent Jony Wise MD Active asthma Onset: 01/01/2016 Acute bronchitis Jony Wise MD Active Onset: 02/04/2016 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 Onset: 09/03/2015 Paroxysmal supraventricular Lemuel Saeed, Active tachycardia Onset: 02/25/2015 Dysfunction of eustachian tube Rob Hayden MD Active Onset: 02/25/2015 Adhesive middle ear disease Rob Hayden MD Active Onset: 12/07/2013 Chronic pain syndrome Margarita Esquivel NP Active Onset: 07/14/2011 Asthma without status asthmaticus Margarita Esquivel NP Active Onset: 07/14/2011 Polycystic ovaries Margarita Esquivel NP Active Onset: 10/12/2017 Viremia Jony Wise MD Active Onset: 10/12/2017 Exacerbation of intermittent Jony Wise MD Active asthma Onset: 10/20/2017 Exacerbation of moderate Jony Wise MD Active persistent asthma Onset: Psoriatic arthritis Active Onset: Rheumatoid arteritis Active Onset: Sjogren's syndrome Active Onset: Osteoarthritis Active Onset: Systemic inflammatory response Active syndrome Onset: 11/12/2017 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 Onset: 02/03/2018 Chronic rhinitis Nena Durham NP Active Family History Date Family Member(s) Problem(s) Comments General No Current Problems Social History Type Date Description Comments Smoke-Free Home is smoke-free Smoking Patient has never smoked Smoking No Second Hand Smoke Exposure Allergies, Adverse Reactions, Alerts Date Description Reaction Status Severity Comments 06/21/2015 Bupropion (Bulk) active 09/03/2015 Doxycycline active 04/11/2014 Neurontin active 07/17/2015 Levofloxacin active 04/11/2014 Levaquin active 06/07/2015 Ipratropium trouble breathing active Moderate to Severe 04/11/2014 Vioxx active 03/15/2015 Minocycline active 04/11/2014 Daypro active 02/25/2015 Zanaflex active 04/11/2014 Vancomycin HCL active 02/25/2015 Prednisone active 04/11/2014 Vicodin active 05/30/2014 Bactrim throat swelling active 07/19/2013 Vancomycin active 04/11/2014 Clindamycin active 04/11/2014 Latex Gloves active 04/11/2014 Cortisone (Bulk) active 04/11/2014 Tramadol active 04/11/2014 Lyrica active 04/11/2014 Bactroban active 04/11/2014 Nucynta active 04/11/2014 Dexamethasone active 09/30/2015 Cipro active 04/29/2018 Zyrtec active Medications Medication Date Status Form Strength Qnty SIG Indications Ordering Provider Loratadine 04/29 Active Tablets 10mg 30tab take one D83.8 s tablet by Fiona Wise MD mouth daily as needed Epipen 2-Andre 04/29 Active Solution 0.3mg/0.3 2unit as D83.8 Auto-Injec ML s directed Fiona Wise MD t Azelastine HCL 02/03 Active Solution 0.1% 1unit i Nena (Nasal) s actuation CHARLES Durham each nostril daily Percocet 01/02 Active Tablets 7.5-325mg 1 tab as needed every 4-6 hours prn back pain Cefdinir 12/03 Active Capsules 300mg 28cap take one J45.41 s capsule Fiona Wise MD by mouth twice a day x14 days Prednisone 12/03 Active Tablets 5mg 60tab 6 tablets J45.41 s (30 mg) Fiona Wise MD by mouth twice a day x 5 days Gamunex-C 11/11 Active Solution 45GM/450M 45GM IV L monthly Fiona Wise MD Proair HFA 10/12 Active Aerosol 108(90Bas 1unit 2 puffs J20.9 e) s every 4 Fiona Wise MD mcg/Act as needed Tretinoin 03/10 Active Gel 0.01% 45uni Apply To ts Face,Chin Luis Fernando Forrest, And Neck MD Nightly At Bedtime Duloxetine HCL 03/[address] 30mg 60cap Take 1 M54.5 Divya Part s Capsule MD Osman By Mouth Once Daily At Night Hydroxychloroqui 03/05 Active Tablets 200mg 42tab Take 1 Divya, ne Sulfate s Tablet By MD Osman Mouth Once Daily For 1 Week, Then Increase To 2 Once Daily Ondansetron 02/02 Active Tablets 4mg 30tab 1 tab R11.0 Dispers s dissolve Luis Fernando Forrest, under MD tongue every 8 hours as needed Benzoyl Peroxide 02/02 Active Liquid 5% 227un Apply To L70.0 [facility] its Affected Luis Fernando D, Area Nightly Cymbalta 01/[address] 30mg 60cap 1 every M54.5 Part s day by MD Osman mouth daily (in addition to the 60mg daily cymbalta) in afternoon Cyclobenzaprine 12/23 Active Tablets 10mg 30tab one by Alvin HCL s mouth CHARLES Avila three times a day as needed spasm Proair HFA 07/17 Active Aerosol 108(90Bas 1unit take 1-2 Darlin Lemuel e) s puffs Nawaf, mcg/Act every 4-6 hours as needed for shortness of breath. Albuterol 06/07 Active Nebulizer (2.5mg/3M 1unit 1 vial J45.909 Varlouisa, Sulfate L) 0.083% s via CHARLES Avila nebulizer 4 times daily as needed Saige Allergy 04/09 Active Tablets 180mg take 1 tablet (180 mg) by oral route once daily Lidocaine HCL 03/27 Active Gel 2% 50uni apply to ts affected CHARLES Avila area 3 - 4 times daily as needed Metformin HCL ER 09/04 Active Tablets ER 500mg 60tab take two E28.2 24HR s tablets CHARLES Avila by mouth one time daily Hibiclens 07/19 Active Liquid 4% 236un wash body A49.02 [facility] [place] Luis Fernando D, neck in shower with water off daily for 7 days Triamcinolone 05/24 Active Cream 0.1% 80uni apply R21 Alvin Acetonide ts twice a CHARLES Avila day until clear Cymbalta Active Caps DR 60mg take 1 Unknown Part capsule (60 mg) by oral route once daily Singulair Active Tablets 10mg take 1 tablet (10 mg) by oral route once daily in the evening Cardizem Active Tablets 30mg qid Unknown Metoprolol Active Tablets ER 25mg 1 by Unknown Succinate ER / 24HR mouth every day Acetaminophen ER Active Tablets ER 650mg 1 tab by Unknown /0000 mouth every 6 hours as needed Methotrexate Active Tablets 2.5mg 3 tabs Unknown /0000 once a week Folic Acid Active Iron Active Unknown Cetirizine HCL 02/03 Hx Tablets 10mg 30tab take one s tablet by CHARLES Durham - mouth 04/29 every at bedtime Augmentin 12/17 Hx Tablets 875-125mg 28tab twice a s day for Fiona Wise MD - 14 days 02/03 Augmentin 11/03 Hx Tablets 875-125mg 28tab twice a D83.8 s day for Fiona Wise MD - 14 days 12/03 Cefdinir 10/20 Hx Capsules 300mg 28cap take one J01.01 s capsule Fiona Wise MD - by mouth 11/12 twice day x14 days Prednisone 10/20 Hx Tablets 5mg 60tab 6 tablets J01.01 s (30 mg) Fiona Wise MD - by mouth 11/03 twice day x 5 days Prednisone 10/12 Hx Tablets 5mg 60tab 6 tablets J20.9 s (30 mg) Fiona Wise MD - by mouth 11/03 twice day x 5 days Augmentin 10/12 Hx Tablets 875-125mg 28tab 1 tab po J20.9 s twice a LATISHA Strickland-Luis - day for 11/03 Augmentin 10/12 Hx Tablets 875-125mg 28tab twice a J20.9 s day for Fiona Wise MD - 14 days 11/03 Amoxicillin/Clav 09/24 Hx Tablets 875-125mg 14tab take one J01.01 ulanate s tablet by Fiona Wise MD Potassium - mouth 09/22 twice day x7 days Clindamycin 09/09 Hx Solution 75mg/5ML 200ml 10 Christopher Palmitate HCL Rec millilite Fiona Wise MD - rs by 09/24 mouth times a day x 10 days Clindamycin HCL 09/08 Hx Capsules 150mg 20cap 1 capsule s by mouth Fiona Wise MD - twice 09/09 daily for 10 days. Clindamycin HCL 08/26 Hx Capsules 150mg 20cap 1 capsule D83.8 s by mouth Fiona Wise MD - twice 08/26 daily 10 days. Clindamycin 08/26 Hx Solution 75mg/5ML 200ml 10 Christopher Palmitate HCL /2015 Rec millilite Fiona Wise MD - rs by 09/08 mouth times a day x 10 days Augmentin 04/21 Hx Tablets 875-125mg 28tab twice a s day for Fiona Wise MD - 14 days 08/24 Clindamycin HCL 03/20 Hx Capsules 300mg 30cap 1 cap by s mouth Fiona Wise MD - three 03/20 times a day Cefdinir 03/20 Hx Capsules 300mg 28cap take two s capsule Fiona Wsie MD - by mouth 08/24 twice day x14 days Clindamycin 02/16 Hx Solution 75mg/5ML 200ml take 10cc Christopher Palmitate HCL Rec by mouth Fiona Wise MD - twice a 08/24 day 10 days Cefdinir 02/06 Hx Suspension 250mg/5ML 200ml 12 cc po J01.00 Rec qd x 14 Fiona Wise MD - days 08/24 Cefdinir 11/13 Hx Capsules 300mg 28cap take one J01.01 s capsule Fiona Wise MD - by mouth 02/06 twice day x14 days Cefdinir 09/30 Hx Capsules 300mg 28cap Take one J01.01 s capsule Fiona Wise MD - by mouth 02/06 twice a day x14 days Augmentin 09/27 Hx Tablets 875-125mg 28tab twice a s day for Fiona Wise MD - 14 days 02/06 Nasacort Allergy 09/03 Hx Aerosol 55mcg/Act 10.80 use 1 J01.90 Varn, 24HR /2014 0unit spray CHARLES Avila - s each 09/22 nostril /2017 twice daily. Erythromycin 06/13 Hx Ointment 5mg/GM 30uni apply to R21 Macaudrey, ts affected Luis Fernando Forrest - mehnaz PATEL 09/24 daily Hizentra 01/28 Hx Solution 1GM/5ML 1 injection CHARLES Avila - q week 08/24 ( currently using due to insurance ) Provera 04/03 Hx Tablets 10mg 10tab one by 626.0 Alvin, s mouth CHARLES Avila - twice a 08/24 day x days Lidoderm Hx Patches 5% apply 2 Unknown /0000 patches - by 08/24 transd al route once daily (May wear up to 12hours.) Nabumetone Hx Tablets 750mg take 1 Unknown /0000 tablet - (750 mg) 08/26 by oral /2015 route 2 times per day Cefuroxime Hx Tablets 500mg 1 by Unknown Axetil /0000 mouth - twice a 08/24 day x days Augmentin Hx Unknown /0000 - 02/03 Medications Administered in Office Medication Date Status Form Strength Qnty SIG Indications Ordering Provider Injection 04/19 Administered Injection Christopher Gamunex Fiona Wise MD Nonlyophilized 500 MG Injection 04/19 Administered Injection Infusion Gamunex Nonlyophilized 500 MG IV Infusion For 04/19 Administered Injection Christopher Therapy, Fiona Wise MD axis Or Diagnosis Additional Hour IV Infusion For 04/19 Administered Injection Infusion Therapy, axis Or Diagnosis Additional Hour IV Infusion For 04/19 Administered Injection Christopher Therapy, Fiona Wise MD axis Or Diagnosis Init Up To 1 HR IV Infusion For 04/19 Administered Injection Infusion Therapy, axis Or Diagnosis Init Up To 1 HR Injection 03/14 Administered Injection Christopher Gamunex IV Fiona Wise MD Nonlyophilized 500 MG Injection 03/14 Administered Injection Christopher Gamunex IV Fiona Wise MD Nonlyophilized 500 MG Injection 03/14 Administered Injection Infusion Gamunex Nonlyophilized 500 MG IV Infusion For 03/14 Administered Injection Christopher Therapy, Fiona Wise MD axis Or Diagnosis Additional Hour IV Infusion For 03/14 Administered Injection Infusion Therapy, axis Or Diagnosis Additional Hour IV Infusion For 03/14 Administered Injection Christopher Therapy, Fiona Wise MD axis Or Diagnosis Init Up To 1 HR IV Infusion For 03/14 Administered Injection Infusion Therapy,Prophyl axis Or Diagnosis Init Up To 1 HR Injection 02/09 Administered Injection Christopher Gamunex Fiona Wise MD Nonlyophilized 500 MG Injection 02/09 Administered Injection Infusion Gamunex IV Nonlyophilized 500 MG IV Infusion For 02/09 Administered Injection Christopher Therapy, Fiona Wise MD axis Or Diagnosis Additional Hour IV Infusion For 02/09 Administered Injection Infusion Therapy,Prophyl axis Or Diagnosis Additional Hour IV Infusion For 02/09 Administered Injection Christopher Therapy, Fiona Wise MD axis Or Diagnosis Init Up To 1 HR IV Infusion For 02/09 Administered Injection Infusion Therapy, axis Or Diagnosis Init Up To 1 HR Injection 01/14 Administered Injection Christopher Gamunex Fiona Wise MD Nonlyophilized 500 MG Injection 01/14 Administered Injection Infusion Gamunex Nonlyophilized 500 MG IV Infusion For 01/14 Administered Injection Christopher Therapy, Fiona Wise MD axis Or Diagnosis Additional Hour IV Infusion For 01/14 Administered Injection Infusion Therapy, rosalino Or Diagnosis Additional Hour IV Infusion For 01/14 Administered Injection Christopher Therapy, Fiona Wise MD axis Or Diagnosis Init Up To 1 HR IV Infusion For 01/14 Administered Injection Infusion Therapy, axis Or Diagnosis Init Up To 1 HR Injection 12/17 Administered Injection Christopher Gamunex Fiona Wise MD Nonlyophilized 500 MG Injection 12/17 Administered Injection Infusion Gamunex Nonlyophilized 500 MG IV Infusion For 12/17 Administered Injection Christopher Therapy, Fiona Wise MD axis Or Diagnosis Additional Hour IV Infusion For 12/17 Administered Injection Infusion Therapy,Prophyl axis Or Diagnosis Additional Hour IV Infusion For 12/17 Administered Injection Christopher Therapy, Fiona Wise MD axis Or Diagnosis Init Up To 1 HR IV Infusion For 12/17 Administered Injection Infusion Therapy, axis Or Diagnosis Init Up To 1 HR Immunizations CPT Code Status Date Vaccine Lot # 17399 Given 09/22/2017 Pneumococcal Vaccine 2Yrs Or Older 5594-0753-89 [id number] Given 08/26/2016 Pneumococcal Vaccine 2Yrs Or Older 0429-2961-29 [id number] Vital Signs Date Vital Result Comment 05/11/2018 BP Systolic 97 mmHg BP Diastolic 62 mmHg Height 64 inches 5'4" Weight 246.00 lb BMI (Body Mass Index) 42.2 kg/m2 Heart Rate 88 /min Respiratory Rate 16 /min Body Temperature 96.5 F O2 % BldC Oximetry 96 % 04/29/2018 BP Systolic 127 mmHg BP Diastolic 87 mmHg Height 64 inches 5'4" Weight 250.38 lb BMI (Body Mass Index) 43.0 kg/m2 Heart Rate 94 /min Respiratory Rate 18 /min Body Temperature 98.3 F O2 % BldC Oximetry 97 % 04/19/2018 BP Systolic 117 mmHg BP Diastolic 66 mmHg Height 64 inches 5'4" Weight 247.50 lb BMI (Body Mass Index) 42.5 kg/m2 Heart Rate 82 /min Respiratory Rate 16 /min Body Temperature 97.9 F O2 % BldC Oximetry 98 % 03/14/2018 BP Systolic 97 mmHg BP Diastolic 58 mmHg Height 64 inches 5'4" Weight 248.00 lb BMI (Body Mass Index) 42.6 kg/m2 Heart Rate 84 /min Respiratory Rate 18 /min Body Temperature 98.0 F O2 % BldC Oximetry 96 % 02/09/2018 BP Systolic 120 mmHg BP Diastolic 63 mmHg Height 64 inches 5'4" Weight 250.00 lb BMI (Body Mass Index) 42.9 kg/m2 Heart Rate 90 /min Respiratory Rate 18 /min Body Temperature 98.2 F O2 % BldC Oximetry 96 % 02/03/2018 BP Systolic 106 mmHg BP Diastolic 76 mmHg Height 64 inches 5'4" Weight 250.00 lb BMI (Body Mass Index) 42.9 kg/m2 Heart Rate 90 /min Body Temperature 97.9 F O2 % BldC Oximetry 98 % 01/14/2018 BP Systolic 100 mmHg BP Diastolic 63 mmHg Height 64 inches 5'4" Weight 246.00 lb BMI (Body Mass Index) 42.2 kg/m2 Heart Rate 78 /min Respiratory Rate 18 /min Body Temperature 98.7 F O2 % BldC Oximetry 96 % 12/17/2017 BP Systolic 110 mmHg BP Diastolic 70 mmHg Height 64 inches 5'4" Weight 246.00 lb 111.8 BMI (Body Mass Index) 42.2 kg/m2 Heart Rate 85 /min Respiratory Rate 18 /min Body Temperature 98.8 F Oral O2 % BldC Oximetry 96 % room air 12/03/2017 BP Systolic 118 mmHg BP Diastolic 62 mmHg Height 64 inches 5'4" Weight 248.00 lb BMI (Body Mass Index) 42.6 kg/m2 Heart Rate 88 /min Body Temperature 97.6 F O2 % BldC Oximetry 98 % 11/03/2017 BP Systolic 106 mmHg BP Diastolic 75 mmHg Height 64 inches 5'4" Weight 248.00 lb BMI (Body Mass Index) 42.6 kg/m2 Heart Rate 88 /min Respiratory Rate 16 /min Body Temperature 97.8 F O2 % BldC Oximetry 98 % 10/20/2017 Height 64 inches 5'4" Weight 255.00 lb BMI (Body Mass Index) 43.8 kg/m2 Heart Rate 102 /min Body Temperature 97.5 F O2 % BldC Oximetry 98 % 10/12/2017 Height 64 inches 5'4" Weight 255.00 lb BMI (Body Mass Index) 43.8 kg/m2 Heart Rate 100 /min Body Temperature 99.1 F O2 % BldC Oximetry 96 % 09/22/2017 BP Systolic 100 mmHg BP Diastolic 70 mmHg Height 64 inches 5'4" Weight 255.00 lb BMI (Body Mass Index) 43.8 kg/m2 Heart Rate 102 /min Body Temperature 97.9 F O2 % BldC Oximetry 95 % 09/24/2016 BP Systolic 127 mmHg BP Diastolic 80 mmHg Height 64 inches 5'4" Weight 257.00 lb BMI (Body Mass Index) 44.1 kg/m2 Heart Rate 96 /min Respiratory Rate 12 /min Body Temperature 98.2 F O2 % BldC Oximetry 99 % 08/26/2016 BP Systolic 118 mmHg BP Diastolic 76 mmHg Height 64 inches 5'4" Weight 256.00 lb BMI (Body Mass Index) 43.9 kg/m2 Heart Rate 85 /min Respiratory Rate 12 /min Body Temperature 98.3 F O2 % BldC Oximetry 98 % 02/07/2016 BP Systolic 127 mmHg BP Diastolic 84 mmHg Height 64 inches 5'4" Weight 247.00 lb BMI (Body Mass Index) 42.4 kg/m2 Heart Rate 82 /min Respiratory Rate 14 /min Body Temperature 99.4 F 01/01/2016 BP Systolic 126 mmHg BP Diastolic 84 mmHg Height 64 inches 5'4" Weight 246.00 lb BMI (Body Mass Index) 42.2 kg/m2 Heart Rate 88 /min Respiratory Rate 14 /min 11/13/2015 BP Systolic 110 mmHg BP Diastolic 75 mmHg Height 64 inches 5'4" Weight 246.00 lb BMI (Body Mass Index) 42.2 kg/m2 Heart Rate 101 /min Respiratory Rate 20 /min Body Temperature 99.9 F O2 % BldC Oximetry 98 % 09/30/2015 BP Systolic 114 mmHg BP Diastolic 66 mmHg Height 64 inches 5'4" Weight 242.00 lb BMI (Body Mass Index) 41.5 kg/m2 Heart Rate 96 /min Respiratory Rate 20 /min Body Temperature 99.0 F O2 % BldC Oximetry 98 % 06/21/2015 BP Systolic 128 mmHg BP Diastolic 90 mmHg Height 64 inches Weight 242.00 lb Heart Rate 92 /min Body Temperature 99.2 F O2 % BldC Oximetry 96 % 02/08/2015 BP Systolic 120 mmHg BP Diastolic 80 mmHg Heart Rate 80 /min 01/22/2015 BP Systolic 120 mmHg BP Diastolic 80 mmHg Heart Rate 80 /min 12/28/2014 BP Systolic 120 mmHg BP Diastolic 80 mmHg Heart Rate 80 /min 09/24/2014 BP Systolic 101 mmHg BP Diastolic 71 mmHg Heart Rate 111 /min Body Temperature 98.1 F O2 % BldC Oximetry 98 % 04/25/2014 BP Systolic 124 mmHg BP Diastolic 86 mmHg Heart Rate 76 /min 04/11/2014 BP Systolic 119 mmHg BP Diastolic 82 mmHg Height 64 inches Weight 237.00 lb Heart Rate 86 /min Results Test Date Test Result H/L Range Note Laboratory test finding 02/20/2016 C Reactive Protein 19.64 mg/L High < 5.00 1 Laboratory test finding 01/20/2016 C Reactive Protein 54.88 mg/L High < 5.00 2 Basic Metabolic Panel 01/20/2016 Anion Gap 10 mmol/L 2-11 BUN/Creatinine Ratio 21.1 High 8-20 Blood Urea Nitrogen 12 mg/dL 6-24 Calcium 9.6 mg/dL 8.6-10.3 Chloride 101 mmol/L 101-111 Co2 Carbon Dioxide 28 mmol/L 22-32 Creatinine 0.57 mg/dL 0.51-0.95 Egfr 159.1 >60 Egfr Non- 123.7 >60 Glucose 130 mg/dL High 70-100 Potassium 3.7 mmol/L 3.5-5.0 Sodium 139 mmol/L 133-145 3 Laboratory test finding 01/23/2015 Albumin 3.8 g/dL 3.2-5.2 Albumin/Globulin Ratio 1.0 1-3 Alkaline Phosphatase 71 U/L 34-104 Alt 38 U/L 7-52 Anion Gap 7 mmol/L 2-11 Ast 30 U/L 13-39 BUN/Creatinine Ratio 15.4 8-20 Blood Urea Nitrogen 10 mg/dL 6-24 C Reactive Protein 31.13 mg/L High < 5.00 Calcium 9.2 mg/dL 8.6-10.3 Chloride 103 mmol/L 101-111 Co2 Carbon Dioxide 27 mmol/L 22-32 Creatine Kinase 111 U/L 10-223 4 Creatinine 0.65 mg/dL 0.51-0.95 Egfr 137.6 >60 Egfr Non- 107.0 >60 Globulin 3.7 g/dL 2-4 Glucose 118 mg/dL High 70-100 Potassium 3.8 mmol/L 3.5-5.0 Sodium 137 mmol/L 133-145 5 Total Bilirubin 0.30 mg/dL 0.2-1.0 Total Protein 7.5 g/dL 6.4-8.9 CBC Auto Diff 01/23/2015 Abs Basophils 0.1 10^3/uL 0-0.2 Abs Eosinophils 0.1 10^3/uL 0-0.6 Abs Lymphocytes 2.8 10^3/uL 1.0-4.8 Abs Monocytes 0.5 10^3/uL 0-0.8 Abs Neutrophils 4.5 10^3/uL 1.5-7.7 Abs Nucleated RBC 0 10^3/uL Basophil % 1.1 % 0-2 Eosinophil % 1.8 % 0-6 Granulocyte % 56.1 % 38-83 Hematocrit 41 % 35-47 Hemoglobin 13.6 g/dL 12.0-16.0 Lymphocyte % 35.2 % 25-47 Mean Corpuscular HGB Conc 34 g/dL 31-36 Mean Corpuscular Hemoglobin 28 pg 27-31 Mean Corpuscular Volume 83 fL 80-97 Mean Platelet Volume 8 um3 7.4-10.4 Monocyte % 5.8 % 1-9 Nucleated Red Blood Cells % 0 Platelet Count 270 10^3/uL 150-450 Red Blood Count 4.86 10^6/uL 4.0-5.4 Red Cell Distribution Width 14 % 10.5-15 White Blood Count 8.0 10^3/uL 4.8-10.8 1 Acute inflammation: >10.00 2 Acute inflammation: >10.00 3 Because ethnic data is not always readily available, this report includes an eGFR for both -Americans and non- Americans. The National Kidney Disease Education Program (NKDEP) does not endorse the use of the MDRD equation for patients that are not between the ages of 18 and 70, are , have extremes of body size, muscle mass, or nutritional status, or are non- or non-. According to the National Kidney Foundation, irrespective of diagnosis, the stage of the disease is based on the level of kidney function: Stage Description GFR(mL/min/1.73 m(2)) 1 Kidney damage with normal or decreased GFR 90 2 Kidney damage with mild decrease in GFR 60-89 3 Moderate decrease in GFR 30-59 4 Severe decrease in GFR 15-29 5 Kidney failure <15 (or dialysis) 4 Acute inflammation: >10.00 5 Because ethnic data is not always readily available, this report includes an eGFR for both -Americans and non- Americans. The National Kidney Disease Education Program (NKDEP) does not endorse the use of the MDRD equation for patients that are not between the ages of 18 and 70, are , have extremes of body size, muscle mass, or nutritional status, or are non- or non-. According to the National Kidney Foundation, irrespective of diagnosis, the stage of the disease is based on the level of kidney function: Stage Description GFR(mL/min/1.73 m(2)) 1 Kidney damage with normal or decreased GFR 90 2 Kidney damage with mild decrease in GFR 60-89 3 Moderate decrease in GFR 30-59 4 Severe decrease in GFR 15-29 5 Kidney failure <15 (or dialysis) Procedures Date CPT Code Description Status 04/19/2018 87089 IV Infusion For Therapy,Prophylaxis Or Diagnosis Completed Additional Hour 04/19/2018 09058 IV Infusion For Therapy,Prophylaxis Or Diagnosis Completed Additional Hour 04/19/2018 00098 IV Infusion For Therapy,Prophylaxis Or Diagnosis Init Completed Up To 1 HR 04/19/2018 63454 IV Infusion For Therapy,Prophylaxis Or Diagnosis Init Completed Up To 1 HR 03/14/2018 64068 IV Infusion For Therapy,Prophylaxis Or Diagnosis Completed Additional Hour 03/14/2018 59617 IV Infusion For Therapy,Prophylaxis Or Diagnosis Completed Additional Hour 03/14/2018 45710 IV Infusion For Therapy,Prophylaxis Or Diagnosis Init Completed Up To 1 HR 03/14/2018 98009 IV Infusion For Therapy,Prophylaxis Or Diagnosis Init Completed Up To 1 HR 02/09/2018 37838 IV Infusion For Therapy,Prophylaxis Or Diagnosis Init Completed Up To 1 HR 02/09/2018 89604 IV Infusion For Therapy,Prophylaxis Or Diagnosis Init Completed Up To 1 HR 02/09/2018 77989 IV Infusion For Therapy,Prophylaxis Or Diagnosis Completed Additional Hour 02/09/2018 83622 IV Infusion For Therapy,Prophylaxis Or Diagnosis Completed Additional Hour 01/14/2018 98549 IV Infusion For Therapy,Prophylaxis Or Diagnosis Completed Additional Hour 01/14/2018 98962 IV Infusion For Therapy,Prophylaxis Or Diagnosis Completed Additional Hour 01/14/2018 32684 IV Infusion For Therapy,Prophylaxis Or Diagnosis Init Completed Up To 1 HR 01/14/2018 94376 IV Infusion For Therapy,Prophylaxis Or Diagnosis Init Completed Up To 1 HR 12/17/2017 95603 IV Infusion For Therapy,Prophylaxis Or Diagnosis Completed Additional Hour 12/17/2017 95784 IV Infusion For Therapy,Prophylaxis Or Diagnosis Completed Additional Hour 12/17/2017 75328 IV Infusion For Therapy,Prophylaxis Or Diagnosis Init Completed Up To 1 HR 12/17/2017 15435 IV Infusion For Therapy,Prophylaxis Or Diagnosis Init Completed Up To 1 HR Encounters Type Date Location Provider CPT E/M Dx Office Visit 04/29/2018 2:00p [facility] [place] 95100 D83.8 D80.6 J31.0 Office Visit 02/03/2018 11:30[place] [address] J31.0 J01.01 Office Visit 12/03/2017 1:15p [place] [address] J45.41 J01.01 Office Visit 11/12/2017 1:30p [place] [address] D80.6 Office Visit 11/03/2017 2:45p Uriel Wise MD [id number] D83.8 J20.9 B34.9 Office Visit 10/20/2017 3:15p [place] [address] J01.01 J45.41 Office Visit 10/12/2017 4:15p [place] [address] J20.9 J01.01 B34.9 J45.21 Office Visit 09/22/2017 11:30[place] [address] D83.8 Office Visit 09/24/2016 10:[address]a [address] [facility] [address] J01.01 Office Visit 08/26/2016 9:30[place] [address] D83.8 J01.01 Z23 Office Visit 02/07/2016 11:30[place] [address] J01.00 Office Visit 01/01/2016 2:15p [place] [address] D83.9 J20.9 Office Visit 11/13/2015 3:30[place] [address] J01.01 Office Visit 09/30/2015 3:45[place] [address] D83.9 J01.01 J45.31 Plan of Care Future Appointment(s):06/08/2018 1:00 pm - Infusion at [facility]404/29/2018 - Franco Luna, PAD83.8 Other common variable immunodeficienciesNew Medication: Loratadine 10 mgEpipen 2-Andre 0.3 mg/0.3MLComments:Patient with common variable immunodeficiency. Patient's CBC results are within normal range. Patient's chemistries are unremarkable. Patient's liver function tests are normal. Patient's immunoglobulins: IgG 936 mg/dL, IgM 199 mg/dL, IgA 154 mg/dL. Patient will switche to Claritin for prophylaxis of her nose. Patient has an EpiPen. Patient to carry an EpiPen with her at all times. 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
--- OUTSIDE RECORDS SUMMARY | 2018-06-02 16:11 | XMS REPORT ---
:1985 External Reference #:[id number] Author Organization Dustin Almendarez M.D., [facility] Address [address] [place] [address] Phone [phone] Care Team Providers Name Role Phone Margarita Esquivel NP Care Team Information Staff Interpreter Unavailable Margariat Esquivel NP Primary Care Physician Unavailable Payers Type Date Identification Numbers Payment Provider Subscriber Medicare Primary Policy Number: [id number] [place] Hillary Peters PayID: [id number] [address] [place] [address] Commercial Expires: 2016 Policy Number: [place] Vernell Peters [id number] PayID: [id number] [address] [place] [address] Medicaid Policy Number: [id number] Medicaid [place] Hillary Peters PayID: [id number] [address] [place] [address] Problems Date Description Provider Status Onset: 09/23/2016 Acute follicular conjunctivitis Dustin Almendarez M.D. Active Onset: 05/13/2016 Type 2 diabetes mellitus Dustin Almendarez M.D. Active Onset: 05/13/2016 Taking medication Dustin Almendarez M.D. Active Onset: 02/26/2015 Myopia Lisa Collins O.D. Active Onset: 02/26/2015 Regular astigmatism Lisa Collins O.D. Active Onset: 02/26/2015 Tear film insufficiency Lisa Collins O.D. Active Onset: 02/26/2015 Punctate keratitis Lisa Collins O.D. Active Family History Date Family Member(s) Problem(s) Comments General Arthritis General High BP General Heart Disease General Diabetes General Cancer General Grandparent, Aunt Father Noncontributory Mother Diabetes Mother Cancer Social History Type Date Description Comments ETOH Use Denies alcohol use Smoking Patient has never smoked Allergies, Adverse Reactions, Alerts Date Description Reaction Status Severity Comments 02/26/2015 Vioxx active 02/26/2015 Bactroban active 02/26/2015 Neurontin active 02/26/2015 Oxycodone active 02/26/2015 Daypro active 02/26/2015 Nucynta active 02/26/2015 Levaquin active 02/26/2015 Prednisone active 02/26/2015 Clindamycin active 02/26/2015 Vancomycin active 02/26/2015 Bactrim active 02/26/2015 Biaxin active 02/26/2015 Zanaflex active 02/26/2015 Cortisone active 02/26/2015 Dexamethasone active 02/26/2015 Percogesic active 02/26/2015 Lyrica active 02/26/2015 Tramadol active 05/13/2016 NSAIDs active 05/13/2016 Ipratropium active 05/13/2016 Mupirocin active 05/13/2016 Minocycline active 05/13/2016 Wheat active Medications Medication Date Status Form Strength Qnty SIG Indications Ordering Provider Refresh P.M. 11/16 Active Ointment 3.500 /4" gm ribbon Sol, applied to OD ocular surface every night at bedtime both eyes Refresh Plus 08/03 Active Solution 0.5% 30uni one drop ts qid OU, or geo Almendarez M.D. Flexgen 02/26 Active Tablets Flexerril Loraine Collins Singulair Active Tablets 10mg 1 by mouth Unknown /0000 every day Cymbalta Active Caps DR Unknown /0000 Part Metformin HCL Active Tablets 500mg Unknown /0000 Lidocaine Viscous Active Solution 2% apply to Unknown /0000 affected area every 4 hours as needed Saige Allergy Active Tablets 60mg prn Unknown /0000 Albuterol Sulfate Active Nebulizer (2.5mg/3M prn Unknown /0000 L) 0.083% Hizentra 20% Active Unknown /0000 Hydroxychloroquin Active Tablets 200mg Take 1 Unknown e Sulfate /0000 Tablet By Mouth Once Daily For 1 Week, Then Increase To 2 Once Fexofenadine HCL Active Tablets 180mg Varn, /0000 Margarita, RUNSTITCHING MACHINE OPERATOR Diltiazem HCL Active Tablets 30mg Unknown /0000 Montelukast Active Tablets 10mg Varn, Sodium / CHARLES Avila Cyclobenzaprine Active Tablets 10mg Take 1 Unknown HCL /0000 Tablet By Mouth 3 Times A Day as Needed For Spasm Duloxetine HCL Active Caps DR 60mg Varn, /0000 Part CHARLES Avila Metoprolol Active Tablets 50mg Unknown Tartrate / Magnesium Active Capsules 500mg Unknown / Zylet 09/23 Hx Suspension 0.5-0.3% 5ml 1 drop H10.011 right eye Almendarez, - 3 a day M.D. 11/17 times days Restasis 08/03 Hx Emulsion 0.05% 60uni one drop ts bid OU Tanesha, - M.D. 11/16 Vital Signs Date Vital Result Comment 11/16/2017 Intraocular Pressure Right Eye 15 mmHg Intraocular Pressure Left Eye 15 mmHg 11/17/2016 Intraocular Pressure Right Eye 15 mmHg Intraocular Pressure Left Eye 15 mmHg 05/13/2016 Intraocular Pressure Right Eye 14 mmHg Intraocular Pressure Left Eye 14 mmHg 02/26/2015 Intraocular Pressure Right Eye 14 mmHg Intraocular Pressure Left Eye 14 mmHg Results Description No Information Procedures Date CPT Code Description Status 11/16/2017 31680 Fundus Photography W/Interpretation & Report Completed 11/16/2017 41436 Refraction Completed 11/16/2017 92668 Eye Exam Est Comprehensive Completed 11/17/2016 64610 Oct Retina Completed 11/17/2016 90820 Visual Field Exam Extended, Unilateral Or Bilateral Completed 11/17/2016 79571 Eye Exam Est Intermediate Completed 09/23/2016 58337 Eye Exam Est Intermediate Completed 05/13/2016 35324 Eye Exam Est Comprehensive Completed 05/13/2016 87185 Refraction Completed 05/13/2016 42891 Ophthalmoscopy Initial Completed 05/13/2016 83175 Fundus Photography W/Interpretation & Report Completed 02/26/2015 57795 Eye Exam Est Intermediate Completed 02/26/2015 301 Contact Lens Fit $25 Completed 04/21/2011 301 Contact Lens Fit $25 Completed 02/20/2011 303 Contact Lens Fit $125 Completed 02/14/2011 00360 Refraction Completed 02/14/2011 12112 Eye Exam New Comprehensive Completed Encounters Type Date Location Provider CPT E/M Dx Office Visit 09/28/2016 10:15a [place] [address] H16.223 Office Visit 07/27/2016 10:15a [place] [address] H16.223 Plan of Care 05/16/2018 - Gwyn Sol, ODM35.01 Sicca syndrome with vloandzugoimkaurhjmjN54.899 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
--- OUTSIDE RECORDS SUMMARY | 2018-06-02 16:11 | XMS REPORT ---
:1985 External Reference #:[id number] Author Organization Dustin Almendarez M.D., [facility] Address [address] [place] [address] Phone [phone] Care Team Providers Name Role Phone Margarita Esquivel NP Care Team Information Check Clerk Unavailable Margarita Esquivel NP Primary Care Physician Unavailable Payers Type Date Identification Numbers Payment Provider Subscriber Medicare Primary Policy Number: [id number] [place] Hlilary Peters PayID: [id number] [address] [place] [address] Commercial Expires: 2016 Policy Number: [place] Vernell Peters [id number] PayID: [id number] [address] [place] [address] Medicaid Policy Number: [id number] Medicaid [place] Hillary Peters PayID: [id number] [address] [place] [address] Problems Date Description Provider Status Onset: 09/23/2016 [...] HCL Active Tablets 180mg Varn, /0000 Margarita, RECORDS CLERK Diltiazem HCL Active Tablets 30mg Unknown /0000 [...] Procedures Date CPT Code Description Status 11/16/2017 08008 Fundus Photography W/Interpretation & Report Completed 11/16/2017 52018 Refraction Completed 11/16/2017 69643 Eye Exam Est Comprehensive Completed 11/17/2016 19062 Oct Retina Completed 11/17/2016 89324 Visual Field Exam Extended, Unilateral Or Bilateral Completed 11/17/2016 20913 Eye Exam Est Intermediate Completed 09/23/2016 74909 Eye Exam Est Intermediate Completed 05/13/2016 65449 Eye Exam Est Comprehensive Completed 05/13/2016 02061 Refraction Completed 05/13/2016 27759 Ophthalmoscopy Initial Completed 05/13/2016 68855 Fundus Photography W/Interpretation & Report Completed 02/26/2015 31523 Eye Exam Est Intermediate Completed 02/26/2015 301 Contact Lens Fit $25 Completed 04/21/2011 301 Contact Lens Fit $25 Completed 02/20/2011 303 Contact Lens Fit $125 Completed 02/14/2011 72785 Refraction Completed 02/14/2011 65259 Eye Exam New Comprehensive Completed Encounters Type Date Location Provider CPT E/M Dx Office Visit 09/28/2016 10:15a [place] [address] H16.223 Office Visit 07/27/2016 10:15a [place] [address] H16.223 Plan of Care Future Appointment(s):11/16/2018 2:15 pm - Gwyn Sol, OD at [facility] [place]4403/2018 - Gwyn Sol, ODM35.01 Sicca syndrome with kvbxglkaskeagwqojjikS58.899 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
[2018-06-02] MEDS ORDERED: NS 0.9% 1000 ML* 1,000 ML IV ONE (16:12)
[2018-06-02 16:28] LABS: EGFR Non-African American 103.1 (>60)
[2018-06-02 16:49] LABS: INR 1.01 (0.77-1.02)
--- NOTE | 2018-06-02 17:10 | RAD ---
INDICATION: Ovarian cysts on CT COMPARISON: CT abdomen pelvis May 31, 2018 TECHNIQUE: Longitudinal and transverse transvaginal scans of the pelvis were obtained. FINDINGS: Uterus: The uterus is normal in size. There are no focal masses. The uterus measures 7.9 x 3.6 x 4.3 cm. Endometrial thickness: The endometrial thickness is measured at 0.8 cm. . Free fluid: There is no significant free fluid . Ovaries: The ovaries are normal in size. The right ovary measures 4.4 x 1.9 x 2.2 cm. The left ovary measures 4.8 x 2.7 x 3.3 cm. There is a 1.7 cm follicle, left ovary. There are no findings in either adnexa that appears prominent as identified on the CT. Doppler interrogation demonstrates flow to each ovary. Other: None IMPRESSION: 1.7 CM LEFT-SIDED FOLLICLE, OTHERWISE NEGATIVE.
[2018-06-02] MEDS ORDERED: oxyCODONE/Acetamin 5/325 MG* TAB PO ONE (17:22)
[2018-06-02 17:23] LABS: Urine Appearance Cloudy; Urine Blood 2+ (Negative); Urine Color Yellow; Urine Ketones Negative (Negative); Urine Protein Negative (Negative); Urine Red Blood Cell 3+(>10/hpf) (Absent); Urine Specific Gravity 1.013 (1.010-1.030); Urine Urobilinogen Negative (Negative); Urine White Blood Cell Trace(0-5/hpf) (Absent)
[2018-06-02 18:31] VITALS: BP 119/66
== END 2018-06-02 18:30 | disposition home or self-care (01) ==
LOC: ED 15:19
DX: R10.817 Generalized abdominal tenderness (principal); R50.9 Fever, unspecified; R11.0 Nausea; R51 Headache; R23.3 Spontaneous ecchymoses; N83.02 Follicular cyst of left ovary; Z88.1 Allergy status to other antibiotic agents; Z91.040 Latex allergy status; Z88.5 Allergy status to narcotic agent; Z88.8 Allergy status to other drugs, medicaments and biological substances; Z91.048 Other nonmedicinal substance allergy status
CPT/HCPCS: 36415; 76830; 80053; 81003; 81015; 83605; 84702; 85025; 85610; 85730; 87040; 87086; 96374; 99282; A9270-GY; J1885

== ENCOUNTER 2018-08-23 10:47 | Day surgery (SDC) | payer MEDICARE, MEDICAID ==
[~2018-08-23 10:47] MED LIST changes: +Famotidine IV* 10 MG/ML 2 ML (20 mg) IV ONE
[2018-08-23] MEDS ORDERED: Famotidine IV* 10 MG/ML 2 ML (20 mg) ONE (11:15)
[2018-08-23] MEDS ORDERED: Lidocaine 2% VISCOUS* 15 ML UDC ONE (11:58)
[2018-08-23] MEDS ORDERED: Lidocaine 2% PF * 5 ML VIAL ONE (12:02)
[2018-08-23] MEDS ORDERED: Lidocaine 4% TOPICAL* 50 ML TOP.SOLN ONE (12:02)
[2018-08-23] MEDS ORDERED: Ondansetron INJ* 2 MG/ML VIAL ONE (12:02)
[2018-08-23] MEDS ORDERED: Midazolam* 1 MG/ML 10 ML VIAL (10 MG) ONE (12:02)
[2018-08-23] MEDS ORDERED: fentaNYL* 50 MCG/ML 2 ML VIAL (100 MCG VIAL) ONE (12:02)
[2018-08-23] MEDS ORDERED: Propofol* 10 MG/ML 20 ML BTL IV PUSH ONE ×2 (12:02→13:33)
[2018-08-23] MEDS ORDERED: Naloxone* 0.4 MG/ML 1 ML VIAL IV PRN (13:55)
[2018-08-23 15:25] VITALS: BP 103/68
--- NOTE | 2018-08-24 14:28 | PRO ---
DATE: 08/23/18 - [facility] REFERRING PRACTITIONER: Margarita Esquivel NP; Luis Fernando Joshua MD * PROCEDURE: Upper gastrointestinal endoscopy and CLOtest, biopsy gastric erythema, cold snare polypectomy, high gastric fundus and mid gastric body soft 5-mm benign- appearing lesions. INDICATION: This 32-year-old woman with numerous medical problems comes in evaluating left upper quadrant pain that has been going on for a year. She has not been vomiting or losing weight. She says she can only eat small portions, and bigger portions or water after meals gives her a feeling "like something is regurgitating or coming up." She does not have dysphagia. She says her bowel pattern is alternating sometimes diarrhea and sometimes cannot go. She has gassiness with flatus more often in the last few months. Her background is remarkable for approximately 25 allergies and approximately 20 medications which include Otezla, Plaquenil, Cymbalta, Flexeril, Glucophage, multiple asthma type inhalers and IV gamma globulin that she has been receiving per year. Given all her medications, Anesthesia's assistance was felt obligatory. ENDOSCOPIST: Dustin Wahl MD MEDICATIONS: Per Dr. Shook, Anesthesia. FINDINGS: She is a massively overweight young woman in no overt distress at this time. Her complexion is difficult to gauge as she is wearing comprehensive foundation makeup. She has no obvious adenopathy but obesity limits the exam. The abdomen has no scars and there is a panniculus. She has never had any abdominal surgery. She was positioned on her side. EGD: - Larynx narrow, symmetric views. Esophagus - easily entered and the mucosa is normal in the upper, mid, and lower esophagus with the EG junction at 40 quite snug and normal-appearing. It was absolutely normal. Stomach - generally normal mucosa with intact normal-appearing rugal folds. There was erythema and granularity; however, the gastric body in a moderate size patch. There were no actual erosions or deformity. Two biopsies were taken. From a separate area CLOtest was taken. In retroflexion in the fundus, there was a pale 5- mm polyp appearing quite benign, lopped off with a cold snare and suctioned retrieved fragmented. In the mid gastric body greater curvature aspect, there was a polyp with slightly different texture, so it was likewise amputated with the snare and suction retrieved. The gastric antrum appeared normal. Pylorus was patent and relaxed without evident contractions. Stomach was empty. Duodenum - generally normal mucosa without any erythema, exudate, or deformity in the bulb and second through fourth portions. Because of the history of immunosuppression, 2 biopsies were taken in the third portion. IMPRESSION: 1. Gastric polyps - small, benign and the patient and her mother had been counseled before the procedure that many potential findings were not necessarily be a cause of any current symptom or immediate concern. 2. Gastric erythema - presumably secondary to her medications and iron will be discontinued as her CBC is quite robustly normal. The hemoglobin and MCV having risen from a mildly low level both in 2012 and fall 2015. 3. Alternating bowel pattern - likely functional. 4. Left upper quadrant pain - source not determined with this exam. No significant lesion found. 5. Normal esophagus - absolutely no sign of a reflux predisposition. 6. Normal duodenum - no sign of inflammation. 7. Chronic pain - it is noted she plans on having another back surgery in [place] in about 3 weeks. Addendum: Clotest negative, routine histology negative from duodenum and stomach; both polyps FGPs no routine f/u [id number]/CPS #: [id number] [facility]
== END 2018-08-23 15:43 | disposition home or self-care (01) ==
LOC: OR 10:47
PROVIDERS: ATTEND Internal Medicine Gastroenterology
DX: R10.12 Left upper quadrant pain (principal); K31.7 Polyp of stomach and duodenum; K58.9 Irritable bowel syndrome, unspecified; I08.1 Rheumatic disorders of both mitral and tricuspid valves; I47.1 Supraventricular tachycardia; M54.5 Low back pain
CPT/HCPCS: 81025; 87077; 88305; J2250; J2405; J2704; J3010

== ENCOUNTER 2019-08-21 18:07 | Emergency (ER) | payer MEDICARE, MEDICAID ==
--- OUTSIDE RECORDS SUMMARY | 2019-08-21 18:23 | XMS REPORT | Continuity of Care Document ---
:1985 External Reference #:[id number] Author Name Osman Stokes M.D. (transmitted by agent of provider Adriana Selby) Address [address] [place] [address] Care Team Providers Name Role Phone Shana Barnett MD - Internal Care Team Information [facility] Problems Active Problems Provider Date Type 2 diabetes mellitus Margarita Esquivel, N.P. Onset: 07/20/2016 Common variable agammaglobulinemia Margarita Esquivel, N.P. Onset: 02/04/2016 Paroxysmal supraventricular tachycardia Lemuel Saeed NP Onset: 09/03/2015 Asthma without status asthmaticus Margarita Esquivel, N.P. Onset: 07/14/2011 Polycystic ovaries Margarita Esquivel, N.P. Onset: 07/14/2011 Chronic pain syndrome Margarita Esquivel, N.P. Onset: 12/07/2013 Adhesive middle ear disease Rob Hayden M.D. 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 in sleep behavior Debo Tinoco MD Onset: 05/13/2017 Social History Type Date Description Comments Sex Unknown Tobacco Use Start: Unknown Never Smoked Cigarettes Tobacco Use Start: Unknown Never Smoked Cigars Tobacco Use Start: Unknown Never Smoked A Pipe Smoking Status Reviewed: 08/21/19 Never Smoked A Pipe Smokeless Tobacco Never Used Smokeless Tobacco ETOH Use Denies alcohol use Tobacco Use Start: Unknown Patient has never smoked Recreational Drug Use Denies Drug Use Exercise Type/Frequency Exercises sporadically walking, seated workout with weights to gradually accustom heart to workout Allergies, Adverse Reactions, Alerts Active Allergies Reaction Severity Comments Date Daypro Urticaria Severe 05/23/2010 Neurontin Urticaria Severe 05/23/2010 vioxx Urticaria Mild 05/23/2010 Bactroban rash Mild 05/23/2010 Nucynta Gets hypoglycemic 12/30/2012 Vancomycin 07/19/2013 Lyrica 07/19/2013 Clindamycin throat swelling 04/02/2014 Bactrim throat swelling 05/30/2014 Vicodin 07/06/2014 Prednisone 02/25/2015 Zanaflex 02/25/2015 Minocycline Severe throat closed 03/15/2015 Ipratropium trouble breathing Severe 06/07/2015 Levofloxacin 07/17/2015 Doxycycline Severe Feelings fo throat 09/03/2015 closure Cipro Anaphylaxis Moderate 10/07/2015 Zyrtec Itching, Throat closes Severe 05/04/2019 up Gammagard Severe anaphlaxis, hives 05/29/2019 Inactive Allergies Oxycodone itchy Moderate 12/01/2010 Medications Active Medications SIG Qnty Indications Ordering Date Provider Augmentin take one 30tabs B34.9 Osman Stokes, 500-125mg Tablets capsule/tab every M.D. 9 8 hours (total of 3 per day) Atorvastatin Calcium 1 by mouth every 90tabs Margarita Esquivel, 10mg day N.P. 9 Tablets Metformin HCL ER Take Two Tablets 180tabs Margarita Esquivel, 500mg By Mouth One Time N.P. 9 Tablets ER 24HR Daily Montelukast Sodium Take 1 Tablet By 90tabs Margarita Esquivel, 10mg Mouth Every Day N.P. 9 Tablets Hydroxychloroquine Take 2 Tablets By 180tabs Osman Stokes, Sulfate Mouth Every Day M.D. 9 200mg Tablets Corlanor Take one tab by 60tabs Karla Baker 5mg Tablets mouth twice daily Shaun Su.P. 9 Hizentra please increase 30ml D84.9 Osman Stokes, 2GM/10ML Solution to 4 gm/10 M.D. 9 milliliters weekly ( currently taking 24 gm weekly 02/17/19 Metoprolol Succinate ER 1/2 tab by mouth 90tabs Margarita Esquivel, 50mg daily N.P. 9 Tablets ER 24HR Epipen 2-Andre use as directed 2units Osman Stokes, 0.3mg/0.3ML M.D. 9 Solution Auto-Inject Duloxetine HCL 1 by mouth every 90caps Margarita Esquivel, 30mg Caps DR day in the am N.P. 9 Part Duloxetine HCL 1 by mouth every 90caps M54.5 Margarita Esquivel, 60mg Caps DR day in the PM N.P. 9 Part Cyclobenzaprine HCL Take 1 Tablet By 90tabs Margarita Esquivel, 10mg Mouth Three Times N.P. 9 Tablets A Day as Needed For Muscle Spasms Loratadine Take 1 Tablet By 30tabs Lemuel Saeed NP 10mg Tablets Mouth Daily as 9 Needed Otezla Take 1 Tablet By 180tabs L40.50 Osman Stokes, 30mg Tablets Mouth Twice A Day M.D. 8 Lidocaine apply 1 patch to 1Box M54.5 Osman Stokes, 5% Patches skin daily for 12 M.D. 8 hours on and then 12 hours off Oxycodone-Acetaminophen one tablet every 20tabs M51.16 Margarita Esquivel, 6-8 hours as N.P. 8 7.5-325mg Tablets needed Plaquenil take 2 tablets by 180tabs Osman Stokes, 200mg Tablets mouth every day M.D. 7 Tretinoin Apply To 45units Luis Fernando D. 0.01% Gel Face,Chin And Kayli Amanda 6 Neck Nightly AT Bedtime (pt is using prn) Benzoyl Peroxide Wash Apply To Affected 227units L70.0 Luis Fernando D. 5% Area Nightly (pt Kayli Amanda 6 Liquid is using prn) Aerochamber Plus Teodoro-Vu Use as directed 1units Shana Misc with inhaler Kayli Barnett 6 Proair HFA Inhale 2 Puffs By 8.5units Margarita Alvin, 108(90Base) Mouth Every 4 N.P. 5 mcg/Act Aerosol Hours as Needed Erythromycin apply to affected 30gm R21 Luis Fernando D. 5mg/GM Ointment area twice daily Kayli Amanda 5 (pt is using prn) Albuterol Sulfate 1 vial via 1box J45.909 Margarita Esquivel, (2.5mg/3ML) nebulizer 4 times N.P. 5 0.083% Nebulizer daily as needed Nebulizer use three times a 1units 786.2 Margarita Esquivel, Device day as needed N.P. 5 Lidocaine HCL apply to affected 50ml Margarita Esquivel, 2% Gel area 3 - 4 times N.P. 5 daily as needed Wrist Splint Left/Right Left and right, 2units 727.05 Lemuel Saeed NP 11/15 Misc to be worn until 5 seen by hand therapy. Thumb Splint/Right Thumb spica for 1units 727.09 Lemuel Saeed NP Medium Dequervains. 4 Misc Thumb Splint/Left Medium Thumb spica for 1units 727.09 Lemuel Saeed NP Dequervains. 4 Misc Hibiclens wash body below 236units A49.02 Luis Fernando D. 4% Liquid neck in shower Kayli Amanda 3 with water off daily for 7 days Provera one by mouth 10tabs N91.1 Margarita Esquivel, 10mg Tablets twice a day x 5 N.P. 3 days (pt takes prn) Triamcinolone Acetonide apply twice a day 80gm R21 Margarita Esquivel, 0.1% until clear (pt N.P. 2 Cream is using prn) Saige Allergy 1 by mouth every Unknown 60mg Tablets day 0 Acetaminophen ER 1 tab by mouth Unknown 650mg every 6 hours as 0 Tablets ER needed Magnesium 1 by mouth every 30tabs Qutaybeh S. 500mg Tablets day Maghaydah, 0 M.DAnn Marie Multi-Vitamin 1 po qd Unknown Tablets 0 History Medications Amoxicillin/Clavulanate take 2 40tabs B34.9 Osman 08/21/2019 - Potassium ER tablets twice Kayli Stokes 08/21/2019 1000-62.5mg Tablets ER a day for 10 12HR days. Azithromycin 2 tabs by 6tabs Osman 08/07/2019 - 250mg Tablets mouth on day Kayli Stokes 08/14/2019 1; 1 tab by mouth every day on days 2-5 Amoxicillin/Clavulanate one tablet by 14tabs J01.90 Osman 06/05/2019 - Potassium mouth twice Kayli Stokes 06/19/2019 875-125mg Tablets daily Atorvastatin Calcium 1 by mouth 30tabs E78.6 Margarita 04/27/2019 - 10mg Tablets every day Varn, N.P. 05/05/2019 Amoxicillin/Clavulanate one tablet by 14tasharon J01Nathan Avila 04/17/2019 - Potassium mouth twice Varn, N.P. 05/04/2019 875-125mg Tablets daily Augmentin take one 30tabs Osman 04/03/2019 - 500-125mg Tablets capsule/tab Kayli Stokes 04/13/2019 every 8 hours (total of 3 per day) Ivabradine 5 mg 1 by 60units Karla Baker 02/24/2019 - mouth twice a Foster, N.P. 03/03/2019 day Medications Administered in Office Medication SIG Qnty Indications Ordering Provider Date Triamcinolone (Kenalog) Osman Stokes M.D. 06/05/2019 Injection PPD Monie Hurtado M.D., FACP 11/09/2007 Injection PPD Margarita Esquivel, N.P. 10/26/2007 Injection Immunizations CPT Code Status Date Vaccine Lot # 44626 Given 12/23/2011 Pneumonia Vaccine [id number] 80068 Given 12/23/2011 Tdap - Tetanus/Diptheria/Acellular Pertussis [id number] Given 10/16/2009 Influenza Virus Vaccine, Pandemic Formulation 53661 Given 10/16/2009 Influenza Virus 3Yrs & Over 79692 Given 10/16/2009 Administration Swine Flu Shot Vital Signs Date Vital Result Comment 08/21/2019 3:42pm Height 65 inches 5'5" Weight 240.00 lb Heart Rate 61 /min BP Systolic Sitting 109 mmHg BP Diastolic Sitting 72 mmHg Respiratory Rate 14 /min Body Temperature 98.7 F Pain Level 10 headache, front and back O2 % BldC Oximetry 97 % BMI (Body Mass Index) 39.9 kg/m2 06/19/2019 3:41pm Height 64 inches 5'4" Weight 239.00 lb Heart Rate 72 /min BP Systolic Sitting 107 mmHg BP Diastolic Sitting 75 mmHg Body Temperature 98.0 F O2 % BldC Oximetry 99 % BMI (Body Mass Index) 41.0 kg/m2 Results Test Acquired Date Facility Test Result H/L Range Note Order 07/17/2019 [facility] Holter <pending> [address] [place] [address] [phone] CBC Auto 06/19/2019 [facility] White Blood 11.3 10^3/uL High 3.5-10.[address] [place] [address] [phone] Red Blood Count 4.68 10^6/uL Normal 3.70-4.87 Hemoglobin 13.3 g/dL Normal 12.0-16.0 Hematocrit 39 % Normal 35-47 Mean Corpuscular Volume 84 fL Normal 80-97 Mean Corpuscular Hemoglobin 28 pg Normal 27-31 Mean Corpuscular HGB Conc 34 g/dL Normal 31-36 Red Cell Distribution Width 13 % Normal 10-15 Platelet Count 315 10^3/uL Normal 150-450 Mean Platelet Volume 8.6 fL Normal 7.4-10.4 Abs Neutrophils 7.1 10^3/uL Normal 1.5-7.7 Abs Lymphocytes 3.5 10^3/uL Normal 1.0-4.8 Abs Monocytes 0.5 10^3/uL Normal 0-0.8 Abs Eosinophils 0.1 10^3/uL Normal 0-0.6 Abs Basophils 0.1 10^3/uL Normal 0-0.2 Abs Nucleated RBC 0.0 10^3/uL Granulocyte % 63.0 % Lymphocyte % 31.1 % Monocyte % 4.5 % Eosinophil % 0.6 % Basophil % 0.8 % Nucleated Red Blood Cells % 0.0 Iron & Iron Binding 06/05/2019 [facility] Iron 89 g/dL Normal 50-[address] [place] [address] [phone] Unsaturated Iron Binding < 455 g/dL Total Iron Binding Capacity 470 g/dL High 250-450 Transferrin 336 mg/dL Normal 203-362 % Iron Saturation 19 % Normal 15-55 Laboratory test 06/05/2019 [facility] Ferritin 25.5 Normal 11- [address] ng/[place] [address] [phone] Laboratory test 05/25/2019 [facility] Erythrocyte Sed 56 mm/Hr High 0-[address] [place] [address] [phone] C Reactive Protein 17.39 mg/L High <8.01 CBC Auto 05/25/2019 [facility] White Blood 7.2 10^3/uL Normal 3.5-10.[address] [place] [address] [phone] Red Blood Count 4.79 10^6/uL Normal 3.70-4.87 Hemoglobin 13.7 g/dL Normal 12.0-16.0 Hematocrit 40 % Normal 35-47 Mean Corpuscular Volume 84 fL Normal 80-97 Mean Corpuscular Hemoglobin 29 pg Normal 27-31 Mean Corpuscular HGB Conc 34 g/dL Normal 31-36 Red Cell Distribution Width 13 % Normal 10-15 Platelet Count 320 10^3/uL Normal 150-450 Mean Platelet Volume 8.2 fL Normal 7.4-10.4 Abs Neutrophils 4.3 10^3/uL Normal 1.5-7.7 Abs Lymphocytes 2.2 10^3/uL Normal 1.0-4.8 Abs Monocytes 0.5 10^3/uL Normal 0-0.8 Abs Eosinophils 0.1 10^3/uL Normal 0-0.6 Abs Basophils 0.1 10^3/uL Normal 0-0.2 Abs Nucleated RBC 0.0 10^3/uL Granulocyte % 59.9 % Lymphocyte % 30.3 % Monocyte % 7.5 % Eosinophil % 1.4 % Basophil % 0.9 % Nucleated Red Blood Cells % 0.0 Comp Metabolic 05/25/2019 [facility] Sodium 139 mmol/L Normal 135-[address] [place] [address] [phone] Potassium 3.8 mmol/L Normal 3.5-5.0 Chloride 103 mmol/L Normal 101-111 Co2 Carbon Dioxide 27 mmol/L Normal 22-32 Anion Gap 9 mmol/L Normal 2-11 Glucose 77 mg/dL Normal 70-100 Blood Urea Nitrogen 9 mg/dL Normal 6-24 Creatinine 0.69 mg/dL Normal 0.51-0.95 BUN/Creatinine Ratio 13.0 Normal 8-20 Calcium 10.0 mg/dL Normal 8.6-10.3 Total Protein 7.9 g/dL Normal 6.4-8.9 Albumin 4.5 g/dL Normal 3.2-5.2 Globulin 3.4 g/dL Normal 2-4 Albumin/Globulin Ratio 1.3 Normal 1-3 Total Bilirubin 0.30 mg/dL Normal 0.2-1.0 Alkaline Phosphatase 73 U/L Normal 34-104 Alt 18 U/L Normal 7-52 Ast 18 U/L Normal 13-39 Egfr Non- 97.4 >60 Egfr 117.8 >60 1 Laboratory test 04/27/2019 [facility] Hemoglobin A1c 5.8 % High 4.0-5.[address] (Glyco HGB) [place] [address] [phone] Lipid Profile 04/27/2019 [facility] Triglycerides 190 3 (Trig/Chol/HDL) [address] mg/[place] [address] [phone] Cholesterol 221 mg/dL 4 HDL Cholesterol 46.6 mg/dL 5 LDL Cholesterol 136 mg/dL 6 Comp Metabolic 04/27/2019 [facility] Sodium 139 mmol/L Normal 135-[address] [place] [address] [phone] Potassium 4.1 mmol/L Normal 3.5-5.0 Chloride 105 mmol/L Normal 101-111 Co2 Carbon Dioxide 25 mmol/L Normal 22-32 Anion Gap 9 mmol/L Normal 2-11 Glucose 106 mg/dL High 70-100 Blood Urea Nitrogen 8 mg/dL Normal 6-24 Creatinine 0.66 mg/dL Normal 0.51-0.95 BUN/Creatinine Ratio 12.1 Normal 8-20 Calcium 9.3 mg/dL Normal 8.6-10.3 Total Protein 7.6 g/dL Normal 6.4-8.9 Albumin 4.4 g/dL Normal 3.2-5.2 Globulin 3.2 g/dL Normal 2-4 Albumin/Globulin Ratio 1.4 Normal 1-3 Total Bilirubin 0.30 mg/dL Normal 0.2-1.0 Alkaline Phosphatase 72 U/L Normal 34-104 Alt 20 U/L Normal 7-52 Ast 16 U/L Normal 13-39 Egfr Non- 102.5 >60 Egfr 124.0 >60 7 1 Because ethnic data is not always readily [...] 15-29 5 Kidney failure <15 (or dialysis) 2 Therapeutic target for the treatment of diabetes mellitus patients is <7% HBA1C, and in selective patients <6.0%. Please refer to [place] [employer] diabetic care guidelines for further information. 3 Desirable: <150 Borderline High: 150-199 High: 200-499 Very High: >500 4 Desirable: <200 Borderline High: 200-239 High: >239 5 Low: <40 Desirable: 40-60 High: >60 6 Desirable: <100 Near Optimal: 100-129 Borderline High: 130-159 High: 160-189 Very High: >189 7 Because ethnic data is not always readily [...] Kidney failure <15 (or dialysis) Procedures Date Code Description Status 07/18/2019 91650 Holter Monitor Review (24 hr)dr review & interp only Completed 07/17/2019 76871 ECG Monitor/Recording W/Visual Superimposition Completed Scanning 07/17/2019 48889 ECG Monitor/Recording W/Visual Superimposition Completed Scanning 06/05/2019 06382 Inject/Drain Joint/Bursa Major W/O US Completed 05/05/2019 76524 EKG Tracing & Interpretation Completed 05/05/2019 16857 EKG Tracing & Interpretation Completed 04/03/2019 10781 ECHO Transthoracic, Real-Time 2D With Doppler And Completed Color Flow 04/03/2019 34968 ECHO Transthoracic, Real-Time 2D With Doppler And Completed Color Flow 03/10/2019 81092 EKG Tracing & Interpretation Completed 11/16/2018 996860628 Diabetic Retinal Eye Exam Completed 11/16/2017 [id number] Diabetic Retinal Eye Exam Completed 05/13/2016 [id number] Diabetic Retinal Eye Exam Completed Medical Devices Description No Information Available Encounters Type Date Location Provider Dx Diagnosis Office Visit 06/19/2019 [facility] Internal Sharron Olmstead MD B34.9 Viral infection , 3:40p Medicine - [facility] unspecified Office Visit 06/05/2019 Rheumatology Osman Stokes, L40.50 Arthropathic 2:40p [facility] Kayli psoriasis, unspecified M70.62 Trochanteric bursitis, left hip D84.9 Immunodeficiency, unspecified Z79.899 Other extermination inspector (current) drug therapy J01.90 Acute sinusitis, unspecified D50.9 Iron deficiency anemia, unspecified Office Visit 05/29/2019 3:30p [facility] Karla S. R00.0 Tachycardia , Foster, N.P. unspecified R60.0 Localized edema E66.01 Morbid (severe) obesity due to excess calories Office Visit 04/17/2019 [facility] Internal Margarita Esquivel, J01.90 Acute sinusitis , 1:40p Medicine - [facility] N.P. unspecified Office Visit 04/03/2019 Rheumatology Osman Stokes, L40.50 Arthropathic 2:20p 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 results of thyroid function studies R73.03 Prediabetes E28.2 Polycystic ovarian syndrome Office Visit 03/10/2019 3:00p [facility] Karla Baker R00.0 Tachycardia , Foster, N.P. unspecified E66.01 Morbid (severe) obesity due to excess calories R94.31 Abnormal electrocardiogram [ECG] [EKG] R42 Dizziness and giddiness R60.0 Localized edema Z68.41 Body mass index (BMI) 40.0-44.9, adult Assessments Date Code Description Provider 08/21/2019 J01.90 Acute sinusitis, unspecified Osman Stokes M.D. 08/21/2019 R22.42 Localized swelling, mass and lump, Osman Stokes M.D. left lower limb 08/21/2019 B34.9 Viral infection, unspecified Osman Stokes M.D. 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 08/21/2019 L40.50 Arthropathic psoriasis, unspecified Osman Stokes M.D. 07/18/2019 R00.0 Tachycardia, unspecified Angela Carballo M.D. 07/17/2019 R00.0 Tachycardia, unspecified Angela Carballo M.D. 07/17/2019 R00.0 Tachycardia, unspecified Nurse Visit cc 06/19/2019 B34.9 Viral infection, unspecified Sharron Olmstead MD 06/05/2019 L40.50 Arthropathic psoriasis, unspecified Osman Stokes M.D. 06/05/2019 M70.62 Trochanteric bursitis, left hip Osman Stokes M.D. 06/05/2019 D84.9 Immunodeficiency, unspecified Osman Stokes M.D. 06/05/2019 Z79.899 Other fdc (current) drug therapy Osman Stokes M.D. 06/05/2019 J01.90 Acute sinusitis, unspecified Osman Stokes M.D. 06/05/2019 D50.9 Iron deficiency anemia, unspecified Osman Stokes M.D. 05/29/2019 R00.0 Tachycardia, unspecified Karla S. Foster, N.P. 05/29/2019 R60.0 Localized edema Karla S. Foster, N.P. 05/29/2019 E66.01 Morbid (severe) obesity due to excess Karla S. Foster, N.P. calories 05/05/2019 R00.0 Tachycardia, unspecified Hood Burch M.D. 05/05/2019 R00.0 Tachycardia, unspecified Nurse Visit cc 04/27/2019 Z00.00 Encounter for general adult medical Margarita Varn, N.P. examination without abno 04/27/2019 D82.8 Immunodeficiency associated with other Margarita Varn, N.P. specified major defec 04/27/2019 E28.2 Polycystic ovarian syndrome Margarita Varn, N.P. 04/27/2019 J45.30 Mild persistent asthma, uncomplicated Margarita Varn, N.P. 04/27/2019 L40.50 Arthropathic psoriasis, unspecified Margarita Varn, N.P. 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 04/27/2019 E11.9 Type 2 diabetes mellitus without Margarita Varn, N.P. complications 04/27/2019 R00.0 Tachycardia, unspecified Margarita Varn, N.P. 04/27/2019 R60.0 Localized edema Margarita Varn, N.P. 04/17/2019 J01.90 Acute sinusitis, unspecified Margarita Varn, N.P. 04/03/2019 R00.0 Tachycardia, unspecified Angela Carballo M.D. 04/03/2019 L40.50 Arthropathic psoriasis, unspecified Osman Stokes M.D. 04/03/2019 R00.0 Tachycardia, unspecified Ica ECHO Schedule 04/03/2019 E66.01 Morbid (severe) obesity due to excess Ica ECHO Schedule calories 04/03/2019 Z79.899 Other extermination inspector (current) drug therapy Osman Stokes M.D. 04/03/2019 R60.0 Localized edema Ica ECHO Schedule 04/03/2019 J01.90 Acute sinusitis, unspecified Osman Stokes M.D. 04/03/2019 R42 Dizziness and giddiness Ica ECHO Schedule 04/03/2019 D82.8 Immunodeficiency associated with other Osman Stokes M.D. specified major defec 03/14/2019 R94.6 Abnormal results of thyroid function Joseph Olivier MD studies 03/14/2019 R73.03 Prediabetes Joseph Olivier MD 03/14/2019 E28.2 Polycystic ovarian syndrome Joseph Olivier MD 03/10/2019 R00.0 Tachycardia, unspecified Angela Carballo M.D. 03/10/2019 R00.0 Tachycardia, unspecified Karla Su, N.P. 03/10/2019 E66.01 Morbid (severe) obesity due to excess Karla Su, N.P. calories 03/10/2019 R94.31 Abnormal electrocardiogram [ECG] [EKG] Karla Su, N.P. 03/10/2019 R42 Dizziness and giddiness Karla Su, N.P. 03/10/2019 R60.0 Localized edema Karla Su, N.P. 03/10/2019 Z68.41 Body mass index (BMI) 40.0-44.9, adult Karla Su, N.P. Plan of Treatment Future Appointment(s):08/22/2019 10:50 am - Luis Fernando Amanda M[facility]/26/2019 2:20 pm - Osman Stokes M.D. at [facility]08/23/2019 3:20 pm - Angela Carballo M.D. at [facility]/21/2020 2:20 pm - Margarita Esquivel N.P. at [facility] Internal Medicine - [facility]08/21/2019 - Osman Stokes M.D.J01.90 Acute sinusitis, mnwyhdrtebbZ11.42 Localized swelling, mass and lump, left lower limbNew Xrays: Unlisted Miscellaneous Proc Diag Nu, Ordered: 08/21/19B34.9 Viral infection, unspecifiedNew Medication:Augmentin 500-125 mg - take one capsule/tab every 8 hours (total of 3 per day)Amoxicillin/Clavulanate Potassium ER 1000-62.5 mg - take 2 tablets twice a day for 10 days.Referral:Luis Fernando Amanda MD, Infectious TzwbsciwE97.9 Immunodeficiency, vsedotjmpryJ90.50 Arthropathic psoriasis, unspecified Functional Status Description No Information Available Mental Status Description No Information Available Referrals Refer to Reason for Referral Status Appt Date Luis Fernando Amanda MD Please evaluate patient for persistent Created 00 sinus infection; history of immunodeficiency [address] [place] [address] [place] [address] [phone]
[2019-08-21 19:56] LABS: ABS Basophils 0.1 10^3/ul (0-0.2); ABS Eosinophils 0.1 10^3/ul (0-0.6); ABS Lymphocytes 3.5 10^3/ul (1.0-4.8); ABS Monocytes 0.6 10^3/ul (0-0.8); ABS Neutrophils 5.8 10^3/ul (1.5-7.7); Eosinophil % 0.5 %; Hematocrit 39 % (35-47); Hemoglobin 13.6 g/dL (12.0-16.0); Lymphocyte % 34.8 %; Mean Corpuscular HGB Conc 35 g/dL (31-36); Mean Corpuscular Hemoglobin 29 pg (27-31); Mean Corpuscular Volume 84 fL (80-97); Mean Platelet Volume 7.9 fL (7.4-10.4); Nucleated Red Blood Cells % 0.1; Platelet Count 301 10^3/uL (150-450); Red Blood Count 4.71 10^6 /uL (3.70-4.87); Red Cell Distribution Width 14 % (10-15); White Blood Count 10.1 10^3/uL (3.5-10.8)
[2019-08-21 20:00] LABS: INR 1.11 (0.82-1.09)
[2019-08-21 20:05] LABS: Influenza A Molecular NEGATIVE (Negative); Influenza B Molecular NEGATIVE (Negative)
[2019-08-21 20:14] LABS: Albumin 4.2 g/dL (3.2-5.2); Albumin/Globulin Ratio 1.1 (1-3); BUN/Creatinine Ratio 13.7 (8-20); C Reactive Protein 14.77 mg/L (<8.01); Calcium 9.5 mg/dL (8.6-10.3); EGFR African American 110.4 (>60); EGFR Non-African American 91.3 (>60); Globulin 3.8 g/dL (2-4); Potassium 3.5 mmol/L (3.5-5.0); Total Bilirubin 0.3 mg/dL (0.2-1.0)
--- NOTE | 2019-08-21 21:10 | ED ---
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 Patient completed a Z-Andre 3 days ago with some improvement in symptoms. Patient has small area of ecchymosis to left calf which is mildly tender to palpation. Patient admits to recent flights to and from [place] and that left calf pain started after first flight to [place], and got worse after the return flight. Denies prior history of blood clots, fever, CP, SOB, N/V/D, abdominal pain, change in urine, change in BM. - History of Current Complaint Chief Complaint: EDExtremityLower Time Seen by Provider: 08/21/19 19:23 Hx Obtained From: Patient Onset/Duration: Gradual Onset, Lasting Days Severity: Mild Associated Signs & Symptoms: Cough, Sore Throat, Nasal Congestion, Headache - Allergy/Home Medications Allergies/Adverse Reactions: Allergies Allergy/AdvReac Type Severity Reaction Status Date / Time minocycline Allergy Severe Swelling Verified 08/21/19 18:14 Of Face,Lips,& Throat cetirizine [From Zyrtec] Allergy throat Verified 08/21/19 18:14 swelling ciprofloxacin [From Cipro] Allergy Swelling Verified 08/21/19 18:14 Of Face,Lips,& Throat clarithromycin [From Biaxin] Allergy Anaphylatic Verified 08/21/19 18:14 Shock clindamycin Allergy Anaphylatic Verified 08/21/19 18:14 Shock dexamethasone Allergy Hives Verified 08/21/19 18:14 doxycycline Allergy Swelling Verified 08/21/19 18:14 Of Face,Lips,& Throat gabapentin [From Neurontin] Allergy Hives Verified 08/21/19 18:14 ipratropium Allergy Unknown Verified 08/21/19 18:14 Reaction Details latex Allergy Rash Verified 08/21/19 18:14 Latex, Natural Rubber Allergy Rash Verified 08/21/19 18:14 mupirocin [From Bactroban] Allergy Hives Verified 08/21/19 18:14 oxaprozin [From Daypro] Allergy Rash Verified 08/21/19 18:14 rofecoxib [From Vioxx] Allergy Hives Verified 08/21/19 18:14 sulfamethoxazole Allergy Airway Verified 08/21/19 18:14 [From Bactrim] Obstruction tizanidine [From Zanaflex] Allergy See Comment Verified 08/21/19 18:14 trimethoprim [From Bactrim] Allergy Airway Verified 08/21/19 18:14 Obstruction vancomycin Allergy Rash Verified 08/21/19 18:14 wheat Allergy Anaphylatic Verified 08/21/19 18:14 Shock wheat dextrin Allergy Anaphylatic Verified 08/21/19 18:14 Shock hydrocodone AdvReac Nausea And Verified 08/21/19 18:14 Vomiting levofloxacin [From Levaquin] AdvReac Leg Cramps Verified 08/21/19 18:14 methylprednisolone AdvReac Altered Verified 08/21/19 18:14 Mental Status pregabalin [From Lyrica] AdvReac Shakes Verified 08/21/19 18:14 tapentadol [From Nucynta] AdvReac Shakes Verified 08/21/19 18:14 tramadol [From Ultram] AdvReac Nausea Verified 08/21/19 18:14 ADHESIVE Allergy NICE Uncoded 02/04/19 09:46 SKIN, ITCHY IRRITATED ENVIRONMENTAL Allergy Congestion Uncoded 02/04/19 09:46 PMH/Surg Hx/FS Hx/Imm Hx Endocrine/Hematology History: Reports: Hx Anemia - on iron, Other Endocrine/ Hematological Disorders - SJOGRENS, CVID, PSORIASIS, RA/PSORIATIC ARTHRITIS Denies: Hx Diabetes, Hx Thyroid Disease Cardiovascular History: Reports: Hx Angina, Other Cardiovascular Problems/ Disorders - pulmonary hypertension Denies: Hx Hypertension - on meds, Hx Pacemaker/ICD Respiratory History: Reports: Hx Asthma - will bring inhalers Denies: Hx Chronic Obstructive Pulmonary Disease (COPD), Hx Sleep Apnea GI History: Denies: Hx Ulcer, Other GI Disorders History: Reports: Hx Kidney Stones - 2007, Other Problems/Disorders Denies: Hx Renal Disease Musculoskeletal History: Reports: Hx Arthritis - RA, psoriatic, osteo, Hx Back Problems - LAMINECTOMY x 2, SPINAL FUSION DISCECTOMY, Hx Fibromyalgia, Hx Tendonitis - ankles, Other Musculoskeletal History - SPINAL STIMULATOR Sensory History: Reports: Hx Contacts or Glasses - CONTACTS Denies: Hx Hearing Aid Opthamlomology History: Reports: Hx Contacts or Glasses - CONTACTS Neurological History: Reports: Hx Headaches, Hx Migraine - ALLERGY TRIGGERED, Hx Nerve Disease - fibromyalgia, nerve damage in back, Other Neuro Impairments/ Disorders - RADICULOPATHY, NEUROPATHY Psychiatric History: Denies: Hx Depression, Hx Panic Disorder - Surgical History Surgery Procedure, Year, and Place: [id number] 6 TOTAL BACK SURGERIES INCLUDING LUMBAR SPINAL FUSIONS AND LAMINECTOMIES, [facility]. 07/2016 DILATION AND [place] [facility] [place] RIGHT WRIST TUMOR REMOVED/RIGHT MIDDLE FINGER REMOVAL [place] [facility] [place]. [place]2014 SPINAL STIMULATOR IMPLANT, [place]. [id number] 3 SETS OF EAR TUBES A CHILD, [facility]. 1992 T & A, [facility]. 2016 - left wrist cyst removed x2 Hx Anesthesia Reactions: No Infectious Disease History: No Infectious Disease History: Reports: Hx of Known/Suspected MRSA, History Other Infectious Disease - MRSA Denies: Hx Clostridium Difficile, Hx Hepatitis, Hx Human Immunodeficiency Virus (HIV), Hx Shingles, Hx Tuberculosis, Hx Known/Suspected VRE, Hx Known/ Suspected VRSA, Traveled Outside the in Last 30 Days - Family History Known Family History: Positive: Cardiac Disease, Hypertension, Diabetes, Other - POS: [place] - Social History Alcohol Use: None Hx Substance Use: No Substance Use Type: Reports: None Hx Tobacco Use: No Smoking Status (MU): Never Smoked Tobacco Have You Smoked in the Last Year: No Review of Systems Constitutional: Negative Eyes: Negative Positive: Nasal Discharge Cardiovascular: Negative Positive: Cough Gastrointestinal: Negative Genitourinary: Negative Musculoskeletal: Negative Skin: Negative Positive: Headache Psychological: Normal All Other Systems Reviewed And Are Negative: Yes Physical Exam Triage Information Reviewed: Yes Vital Signs On Initial Exam: Initial Vitals Temp Pulse Resp BP Pulse Ox 97.3 F 61 17 126/88 97 08/21/19 18:10 08/21/19 18:10 08/21/19 18:10 08/21/19 18:10 08/21/19 18:10 Vital Signs Reviewed: Yes Appearance: Positive: Well-Appearing Skin: Positive: Warm Head/Face: Positive: Normal Head/Face Inspection Eyes: Positive: Normal Neck: Positive: Supple Respiratory/Lung Sounds: Positive: Clear to Auscultation Cardiovascular: Positive: Normal Abdomen Description: Positive: Nontender Musculoskeletal: Positive: Normal Neurological: Positive: Normal Psychiatric: Positive: Normal AVPU Assessment: Alert - Fili Coma Scale Best Eye Response: 4 - Spontaneous Best Motor Response: 6 - Obeys Commands Best Verbal Response: 5 - Oriented Coma Scale Total: 15 Procedures - Sedation Patient Received Moderate/Deep Sedation with Procedure: No Diagnostics - Vital Signs Vital Signs Temp Pulse Resp BP Pulse Ox 08/21/19 18:10 97.3 F 61 17 126/88 97 - Laboratory Lab Results: Lab Results 08/21/19 08/21/19 08/21/19 Range/Units 19:41 19:46 19:46 WBC 10.1 (3.5-10.8) 10^3/uL RBC 4.71 (3.70-4.87) 10^6 /uL Hgb 13.6 (12.0-16.0) g/dL Hct 39 (35-47) % MCV 84 (80-97) fL MCH 29 (27-31) pg MCHC 35 (31-36) g/dL RDW 14 (10-15) % Plt Count 301 (150-450) 10^3/uL MPV 7.9 (7.4-10.4) fL Neut % (Auto) 57.3 % Lymph % (Auto) 34.8 % Perkins % (Auto) 6.3 % Eos % (Auto) 0.5 % Baso % (Auto) 1.1 % Absolute Neuts (auto) 5.8 (1.5-7.7) 10^3/ul Absolute Lymphs (auto) 3.5 (1.0-4.8) 10^3/ul Absolute Monos (auto) 0.6 (0-0.8) 10^3/ul Absolute Eos (auto) 0.1 (0-0.6) 10^3/ul Absolute Basos (auto) 0.1 (0-0.2) 10^3/ul Absolute Nucleated RBC 0.0 10^3/ul Nucleated RBC % 0.1 ESR Pending INR (Anticoag Therapy) (0.82-1.09) Sodium 138 (135-145) mmol/L Potassium 3.5 (3.5-5.0) mmol/L Chloride 102 (101-111) mmol/L Carbon Dioxide 27 (22-32) mmol/L Anion Gap 9 (2-11) mmol/L BUN 10 (6-24) mg/dL Creatinine 0.73 (0.51-0.95) mg/dL Est GFR ( Amer) 110.4 (>60) Est GFR (Non-Af Amer) 91.3 (>60) BUN/Creatinine Ratio 13.7 (8-20) Glucose 94 (70-100) mg/dL Calcium 9.5 (8.6-10.3) mg/dL Total Bilirubin 0.30 (0.2-1.0) mg/dL AST 16 (13-39) U/L ALT 15 (7-52) U/L Alkaline Phosphatase 58 (34-104) U/L C-Reactive Protein 14.77 H (<8.01) mg/L Total Protein 8.0 (6.4-8.9) g/dL Albumin 4.2 (3.2-5.2) g/dL Globulin 3.8 (2-4) g/dL Albumin/Globulin Ratio 1.1 (1-3) Influenza A (Rapid) Negative (Negative) Influenza B (Rapid) Negative (Negative) 08/21/19 Range/Units 19:46 WBC (3.5-10.8) 10^3/uL RBC (3.70-4.87) 10^6 /uL Hgb (12.0-16.0) g/dL Hct (35-47) % MCV (80-97) fL MCH (27-31) pg MCHC (31-36) g/dL RDW (10-15) % Plt Count (150-450) 10^3/uL MPV (7.4-10.4) fL Neut % (Auto) % Lymph % (Auto) % Perkins % (Auto) % Eos % (Auto) % Baso % (Auto) % Absolute Neuts (auto) (1.5-7.7) 10^3/ul Absolute Lymphs (auto) (1.0-4.8) 10^3/ul Absolute Monos (auto) (0-0.8) 10^3/ul Absolute Eos (auto) (0-0.6) 10^3/ul Absolute Basos (auto) (0-0.2) 10^3/ul Absolute Nucleated RBC 10^3/ul Nucleated RBC % ESR INR (Anticoag Therapy) 1.11 H (0.82-1.09) Sodium (135-145) mmol/L Potassium (3.5-5.0) mmol/L Chloride (101-111) mmol/L Carbon Dioxide (22-32) mmol/L Anion Gap (2-11) mmol/L BUN (6-24) mg/dL Creatinine (0.51-0.95) mg/dL Est GFR ( Amer) (>60) Est GFR (Non-Af Amer) (>60) BUN/Creatinine Ratio (8-20) Glucose (70-100) mg/dL Calcium (8.6-10.3) mg/dL Total Bilirubin (0.2-1.0) mg/dL AST (13-39) U/L ALT (7-52) U/L Alkaline Phosphatase (34-104) U/L C-Reactive Protein (<8.01) mg/L Total Protein (6.4-8.9) g/dL Albumin (3.2-5.2) g/dL Globulin (2-4) g/dL Albumin/Globulin Ratio (1-3) Influenza A (Rapid) (Negative) Influenza B (Rapid) (Negative) Result Diagrams: 08/21/19 19:46 08/21/19 19:46 Lab Statement: Any lab studies that have been ordered have been reviewed, and results considered in the medical decision making process. 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 Patient completed a Z-Andre 3 days ago with some improvement in symptoms. Patient has small area of ecchymosis to left calf which is mildly tender to palpation. Patient admits to recent flights to and from [place] and that left calf pain started after first flight to [place], and got worse after the return flight. Denies prior history of blood clots, fever, CP, SOB, N /V/D, abdominal pain, change in urine, change in BM. Vital signs within normal limits. Labs unremarkable. Ultrasound negative positive for distal DVT in the popliteal vein. Patient also has symptoms consistent with sinusitis which is likely viral due to failure of Z-Andre. Patient started on Eliquis 10 mg twice a day for 7 days. Patient to follow up with PCP regarding further treatment of Eliquis. Patient understands and approves of plan. Patient not on OCPs or estrogen supplements. - Diagnoses Provider Diagnoses: DVT (deep venous thrombosis), Sinusitis Discharge ED - Sign-Out/Discharge Documenting (check all that apply): Patient Departure - Discharge Plan Condition: Stable Disposition: HOME Prescriptions: Apixaban [Eliquis] 10 mg PO BID 7 Days #14 [email or web address] Patient Education Materials: Sinusitis (ED), Deep Vein Thrombosis (ED) Referrals: Margarita Esquivel NP [Primary Care Provider] - Additional Instructions: Take Eliquis twice daily for 7 days. Follow-up with your primary care doctor to determine how much longer you should take the medication and at what dose. Return to the ED for any new or worsening symptoms. Do not take control while taking this medication. Continue taking antibiotics prescribed by your primary care doctor for sinusitis. - Billing Disposition and Condition Condition: STABLE Disposition: Home
[2019-08-21] MEDS ORDERED: Apixaban* 5 MG TAB PO ONE (21:11)
[2019-08-21 21:28] VITALS: BP 130/79
[2019-08-21] MEDS ORDERED: Apixaban* 5 MG TAB PO SCH (22:00)
[2019-08-21 22:09] LABS: Erythrocyte Sed Rate 65 mm/Hr (0-19)
[2019-08-23 14:58] LABS: Immunoglobulin A 154 mg/dL (61 - 356); Immunoglobulin G 1480 mg/dL (767 - 1590); Immunoglobulin M 199 mg/dL (37 - 286)
== END 2019-08-21 21:27 | disposition home or self-care (01) ==
LOC: ED 18:07
DX: J32.9 Chronic sinusitis, unspecified (principal); I82.442 Acute embolism and thrombosis of left tibial vein; D64.9 Anemia, unspecified; I27.20 Pulmonary hypertension, unspecified; Z88.5 Allergy status to narcotic agent; Z88.2 Allergy status to sulfonamides; Z88.8 Allergy status to other drugs, medicaments and biological substances; Z88.1 Allergy status to other antibiotic agents; Z91.040 Latex allergy status
CPT/HCPCS: 36415; 80053; 82784; 85025; 85610; 85652; 86140; 99282